=== PATIENT | female | born 1995 | race Caucasian/White ===

== ENCOUNTER 2017-11-14 20:09 | Inpatient (IN) | payer SELFPAY ==
[~2017-11-14] VITALS: Ht 167.6 cm; Wt 127.0 kg
[~2017-11-14 20:09] MED LIST: CLIN-80 PO; DCS100C PO; Ibuprofen PO; METR500T PO; MONISTAT7 VG; NITR-65 PO; PREN1TAB71 PO
--- OUTSIDE RECORDS SUMMARY | 2017-11-14 20:16 | XMS REPORT ---
Author IGNACIO Solorzano [facility] eClinicalWorks Address Unknown Phone Unavailable Care Team Providers Care Residential Supervisor Name Role Phone IGNACIO NIÑO CP Unavailable Allergies, Adverse Reactions, Alerts Substance Reaction Event Type N.K.D.A. Info Not Available Non Drug Allergy Problems Problem Type Condition ICD-9 Code Onset Dates Condition Status Assessment General counseling for prescription of oral contraceptives V25.01 Active Problem General counseling for prescription of oral contraceptives V25.01 Active Medications Medication Code System Code Instructions Start Date End Date Status Dosage Depo-Provera [facility] [address]-58 150 MG/ML Intramuscular 1 ml Procedures Procedure Coding System Code Date DEPO PROVERA (150 MG/ML) CPT-4 J1050 Apr 05, 2015 THER/PROPH/DIAG INJ, SC/IM CPT-4 33831 Apr 05, 2015 URINE TEST CPT-4 67627 Apr 05, 2015 Preventive Care Est Pt. Age 18-39 CPT-4 21828 Apr 05, 2015 Vital Signs Date/Time: Apr 05, 2015 Temperature 97.8 F Weight 243 lbs Height 66.5 in BMI 38.63 Index Blood Pressure Diastolic 68 mmHg Blood Pressure Systolic 122 mmHg Cardiac Monitoring Heart Rate 70 bpm BMIPercentile 98.39 % Wt Percentile 99.22 % Results Name Result Date Reference Range Unit Abnormality Flag TEST, URINE (IN HOUSE) Summary Purpose eClinicalWorks Submission
--- OUTSIDE RECORDS SUMMARY | 2017-11-14 20:16 | XMS REPORT ---
Author Author HECTOR PHILIPPE Organization eClinicalWorks Address Unknown Phone Unavailable Care Team Providers Care Dispute Coordinator Name Role Phone HECTOR PHILIPPE CP Unavailable Allergies No Known Allergies Problems Problem Type Condition Code Onset Dates Condition Status Assessment Encounter for Depo-Provera contraception Z30.42 Active Problem General counseling for prescription of oral contraceptives V25.01 Active Medications No Known Medications Procedures Procedure Coding System Code Date DEPO PROVERA (150 MG/ML) CPT-4 J1050 Jun 13, 2016 THER/PROPH/DIAG INJ, SC/IM CPT-4 48189 Jun 13, 2016 URINE TEST CPT-4 79543 Jun 13, 2016 Results No Known Results Summary Purpose eClinicalWorks Submission
--- OUTSIDE RECORDS SUMMARY | 2017-11-14 20:16 | XMS REPORT ---
Author Author DAYDAY Elena [facility] Address Unknown Care Team Providers Care Preparation Plant Repairer Name Role Phone DAYDAY Elena Unavailable PROBLEMS Type Condition ICD9-CM Code AFC84-SD Code Onset Dates Condition Status SNOMED Code Problem IUD (intrauterine device) in place Z97.5 Active 033689485 ALLERGIES Substance Reaction Event Type Date Status N.K.D.A. Unknown Non Drug Allergy Jul, Unknown SOCIAL HISTORY No smoking Hx information available PLAN OF CARE Activity Details Follow Up prn Reason:TE of 19 and DANDRE VITAL SIGNS Height 66.5 in 2016-08-04 Blood pressure systolic 127 mmHg 2016-08-04 Blood pressure diastolic 69 mmHg 2016-08-04 MEDICATIONS Medication Instructions Dosage Frequency Start Date End Date Duration Status Depo-Provera 150 MG/ML 1 ml Active RESULTS No Results PROCEDURES Procedure Date Ordered Related Diagnosis Body Site LTD ORAL EVALUATION - PROBLEM FOCUS Aug 04, 2016 INTRAORL-PERIAPICAL 1 FILM 55184 Aug 04, 2016 IMMUNIZATIONS No Known Immunizations
--- OUTSIDE RECORDS SUMMARY | 2017-11-14 20:16 | XMS REPORT ---
Author Author SHIVA CISSE Organization eClinicalWorks Address Unknown Phone Unavailable Care Team Providers Care Swing Type Lathe Operator Name Role Phone SHIVA CISSE CP Unavailable Allergies No Known Allergies Problems Problem Type Condition Code Onset Dates Condition Status Assessment test negative Z32.02 Active Problem General counseling for prescription of oral contraceptives V25.01 Active Medications No Known Medications Procedures Procedure Coding System Code Date URINE TEST CPT-4 33252 May 30, 2016 Results Name Result Date Reference Range Unit Abnormality Flag TEST, URINE (IN HOUSE) ----RESULTS neg [id number] ----Lot # [id number] ----Control + [id number] ----Exp date 11/07/1720160530 Summary Purpose eClinicalWorks Submission
--- OUTSIDE RECORDS SUMMARY | 2017-11-14 20:16 | XMS REPORT ---
Author Author IGNACIO NIÑO [facility] eClinicalWorks Address Unknown Phone Unavailable Care Team Providers Care Polisher Balance Screwhead Name Role Phone IGNACIO NIÑO Unavailable Allergies No Known Allergies Problems Problem Type Condition Code Onset Dates Condition Status Assessment Negative test Z32.02 Active Problem General counseling for prescription of oral contraceptives V25.01 Active Medications No Known Medications Procedures Procedure Coding System Code Date URINE TEST CPT-4 70695 Jul 23, 2015 Results No Known Results Summary Purpose eClinicalWorks Submission
--- OUTSIDE RECORDS SUMMARY | 2017-11-14 20:16 | XMS REPORT ---
Author Author SHIVA CISSE [facility] Address [address] [place] [address] Care Team Providers Care Rod Drawer Name Role Phone SHIVA CISSE Unavailable PROBLEMS Type Condition ICD9-CM Code [id number] Code Onset Dates Condition Status SNOMED Code Problem IUD (intrauterine device) in place Z97.5 Active 614090314 ALLERGIES No Known Allergies SOCIAL HISTORY Never Assessed PLAN OF CARE Activity Details Follow Up prn Reason: VITAL SIGNS Height 66.5 in 2016-10-09 Weight 265.2 lbs 2016-10-09 Temperature 97.9 degrees Fahrenheit 2016-10-09 Heart Rate 76 bpm 2016-10-09 Respiratory Rate 18 2016-10-09 BMI 42.16 kg/m2 2016-10-09 Blood pressure systolic 110 mmHg 2016-10-09 Blood pressure diastolic 60 mmHg 2016-10-09 MEDICATIONS Medication Instructions Dosage Frequency Start Date End Date Duration Status Mirena (52 MG) 20 MCG/24HR as directed Oct, Active RESULTS Name Result Date Reference Range TEST, URINE (IN HOUSE) 2016-10-09 RESULTS negative Lot # [id number] Control positive Exp date 05/09/18 PROCEDURES Procedure Date Ordered Result Body Site URINE TEST October 09, 2016 IMMUNIZATIONS No Known Immunizations MEDICAL (GENERAL) HISTORY Type Description Date Medical History attention deficit hyperactivity disorder Medical History depression Surgical History tonsillectomy Surgical History knee surgery right knee 04/2016 Hospitalization History childbirth
--- OUTSIDE RECORDS SUMMARY | 2017-11-14 20:16 | XMS REPORT ---
Author Author HECTOR BOB Organization [facility] Address [address] [place] [address] Care Team Providers Care Production Laborer Name Role Phone HECTOR BOB Unavailable PROBLEMS Type Condition ICD9-CM Code LWR81-YV Code Onset Dates Condition Status SNOMED Code Problem IUD (intrauterine device) in place Z97.5 Active 034157215 ALLERGIES Substance Reaction Event Type Date Status N.K.D.A. Unknown Non Drug Allergy Aug, Unknown SOCIAL HISTORY No smoking Hx information available PLAN OF CARE Activity Details Follow Up prn Reason:if not improving VITAL SIGNS Height 66.5 in 2016-08-20 Weight 261.8 lbs 2016-08-20 Temperature 96.9 degrees Fahrenheit 2016-08-20 Heart Rate 88 bpm 2016-08-20 Respiratory Rate 16 2016-08-20 BMI 41.62 kg/m2 2016-08-20 Blood pressure systolic 108 mmHg 2016-08-20 Blood pressure diastolic 58 mmHg 2016-08-20 MEDICATIONS Medication Instructions Dosage Frequency Start Date End Date Duration Status Azelastine HCl 0.05 % Ophthalmic Twice a day 1 drop into affected eye 12h 10 Aug, 2016 07 days Active Erythromycin 5 MG/GM Ophthalmic Four times a day 1cm ribbon 6h Aug, Aug, 10 days Active Cromolyn Sodium 4 % Ophthalmic Four times a day as needed 1 drop into affected eye Aug, 14 days Active Depo-Provera 150 MG/ML 1 ml Active RESULTS No Results PROCEDURES Procedure Date Ordered Related Diagnosis Body Site Office Visit, Est Pt., Level 3 Aug 20, 2016 IMMUNIZATIONS No Known Immunizations
--- OUTSIDE RECORDS SUMMARY | 2017-11-14 20:16 | XMS REPORT ---
Author IGNACIO Solorzano [facility] eClinicalWorks Address Unknown Phone Unavailable Care Team Providers Care Material Handling Supervisor Name Role Phone IGNACIO NIÑO Unavailable Allergies No Known Allergies Problems Problem Type Condition Code Onset Dates Condition Status Assessment Encounter for Depo-Provera contraception Z30.42 Active Problem General counseling for prescription of oral contraceptives V25.01 Active Medications No Known Medications Procedures Procedure Coding System Code Date DEPO PROVERA (150 MG/ML) CPT-4 J1050 Mar 25, 2016 THER/PROPH/DIAG INJ, SC/IM CPT-4 15823 Mar 25, 2016 URINE TEST CPT-4 22566 Mar 25, 2016 Results No Known Results Summary Purpose eClinicalWorks Submission
--- OUTSIDE RECORDS SUMMARY | 2017-11-14 20:16 | XMS REPORT ---
Author Author HECTOR BOB [facility] Address [address] [place] [address] Care Team Providers Care Instrumentation Supervisor Name Role Phone HECTOR BOB Unavailable PROBLEMS Type Condition ICD9-CM Code [id number] Code Onset Dates Condition Status SNOMED Code Problem IUD (intrauterine device) in place Z97.5 Active [id number] ALLERGIES No Information SOCIAL HISTORY Never Assessed PLAN OF CARE VITAL SIGNS MEDICATIONS No Known Medications RESULTS Name Result Date Reference Range TEST, URINE (IN HOUSE) 2016-12-22 RESULTS negative Lot # [id number] Control + Exp date 11/2017 PROCEDURES Procedure Date Ordered Result Body Site URINE TEST December 22, 2016 IMMUNIZATIONS No Known Immunizations MEDICAL (GENERAL) HISTORY Type Description Date Medical History attention deficit hyperactivity disorder Medical History depression Surgical History tonsillectomy Surgical History knee surgery right knee 04/2016 Hospitalization History childbirth
--- OUTSIDE RECORDS SUMMARY | 2017-11-14 20:16 | XMS REPORT ---
Author IGNACIO Solorzano [facility] eClinicalWorks Address Unknown Phone Unavailable Care Team Providers Care Clay Plant Treater Name Role Phone IGNACIO NIÑO Unavailable Allergies No Known Allergies Problems Problem Type Condition Code Onset Dates Condition Status Assessment Encounter for Depo-Provera contraception Z30.42 Active Problem General counseling for prescription of oral contraceptives V25.01 Active Medications No Known Medications Procedures Procedure Coding System Code Date DEPO PROVERA (150 MG/ML) CPT-4 J1050 Jun 21, 2015 THER/PROPH/DIAG INJ, SC/IM CPT-4 32869 Jun 21, 2015 URINE TEST CPT-4 16988 Jun 21, 2015 Results Name Result Date Reference Range Unit Abnormality Flag TEST, URINE (IN HOUSE) Summary Purpose eClinicalWorks Submission
--- OUTSIDE RECORDS SUMMARY | 2017-11-14 20:16 | XMS REPORT | Continuity of Care Document ---
Author Author [facility] Address Unknown Phone Unavailable Allergies Active Description Code Type Severity Reaction Onset Reported/Identified Relationship to Patient Clinical Status Yes No Known Drug Allergies [id number] Drug Allergy Unknown N/A 2013 Medications There is no data. Problems Date Dx Coded Attending Type Code Diagnosis Diagnosed By 04/29/2013 ROLAN BASHIR MD Ot 648.91 04/29/2013 ROLAN BASHIR MD Ot V02.51 04/29/2013 ROLAN BASHIR MD Ot V06.1 04/29/2013 ROLAN BASHIR MD Ot V27.0 07/04/2013 GOLDSTEIN YUSUF Jeff V25.01 GENERAL COUNSELING ON PRESCRIPTION OF ORAL CONTRACEPTIVES 10/29/2013 ENOC PHELAN HARINDER Jeff Ot 599.0 10/29/2013 ENOC PHELAN HARINDER K Ot 623.8 10/29/2013 ENOC PHELAN HARINDER Jeff Ot 640.03 10/29/2013 ENOC PHELAN HARINDER Aguilar Ot 646.63 12/09/2013 YOLANDE NORMAN APRN Ot 648.93 12/09/2013 YOLANDE NORMAN APRN Ot 789.00 12/10/2013 DENA MCCONNELL MD Ot 112.1 12/10/2013 DENA MCCONNELL MD Ot 647.81 12/10/2013 DENA MCCONNELL MD Ot 789.09 02/06/2014 ROLAN BASHIR MD Ot 623.5 02/06/2014 ROLAN BASHIR MD Ot 654.73 05/07/2014 ROLAN BASHIR MD Ot 285.1 05/07/2014 ROLAN BASHIR MD Ot 285.9 05/07/2014 ROLAN BASHIR MD Ot 648.21 05/07/2014 ROLAN BASHIR MD Ot 648.22 05/07/2014 ROLAN BASHIR MD Ot V27.0 08/17/2014 ROLAN BASHIR MD Ot V28.89 08/17/2014 ROLAN BASHIR MD Ot V28.81 04/05/2015 Ot 648.93 04/05/2015 Ot 789.00 04/05/2015 ROLAN BASHIR MD Ot 649.63 04/05/2015 ROLAN BASHIR MD Ot V28.89 04/05/2015 ROLAN BASHIR MD Ot V28.81 04/05/2015 ROLAN BASHIR MD Ot V28.81 Procedures Code [place] [address] URINE TEST (IN- HOUSE) 07/04/2013 09839 GC/CHLAM URINE (STATE) 07/04/2013 Results There is no data. Encounters ACCT No. Visit Date/Time Discharge Status Pt. Type Provider Facility Loc./Unit Complaint [id number] 07/04/2013 11:00:00 07/04/2013 23:59:59 CLS Outpatient ANGELITA YUSUF PHELAN [id number] 05/06/2014 12:07:00 05/07/2014 22:55:00 DIS Inpatient ROLAN BASHIR MD [facility] LD [id number] 02/28/2014 09:36:00 02/28/2014 23:59:59 CLS Outpatient ROLAN BASHIR MD [facility] RAD [id number] 02/06/2014 22:05:00 02/06/2014 23:50:00 DIS Outpatient ROLAN BASHIR MD [facility] WSo [id number] 01/03/2014 14:20:00 01/03/2014 23:59:59 CLS Outpatient ROLAN BASHIR MD [facility] RAD [id number] 12/10/2013 15:15:00 12/10/2013 16:23:00 DIS Emergency DENA MCCONNELL MD [facility] ER [id number] 12/09/2013 18:12:00 12/09/2013 20:54:00 DIS Emergency YOLANDE NORMAN APRN [facility] ER [id number] 10/29/2013 18:05:00 10/29/2013 20:59:00 DIS Emergency ENOC PHELAN HARINDER Aguilar [facility] ER [id number] 09/30/2013 09:51:00 09/30/2013 23:59:59 CLS Outpatient ROLAN BASHIR MD [facility] RAD [id number] 2013 18:52:00 04/29/2013 16:15:00 DIS Inpatient ROLAN BASHIR MD [facility] WS [id number] 12/13/2012 09:49:00 12/13/2012 23:59:59 CLS Outpatient ROLAN BASHIR MD [facility] RAD [id number] 11/14/2017 20:11:00 ACT Emergency ENOC PHELAN HARINDER Aguilar [facility] ER SWELLING ON L SIDE OF FACE [id number] 09/20/2012 14:09:00 Document Registration
--- OUTSIDE RECORDS SUMMARY | 2017-11-14 20:16 | XMS REPORT ---
Author Author HECTOR BOB [facility] Address [address] [place] [address] Care Team Providers Care Solution Manager Name Role Phone HECTOR BOB Unavailable PROBLEMS Type Condition ICD9-CM Code CRE42-XI Code Onset Dates Condition Status SNOMED Code Problem IUD (intrauterine device) in place Z97.5 Active [id number] ALLERGIES No Known Allergies SOCIAL HISTORY No smoking Hx information available PLAN OF CARE VITAL SIGNS MEDICATIONS No Known Medications RESULTS No Results PROCEDURES No Known procedures IMMUNIZATIONS No Known Immunizations
[2017-11-14] MEDS ORDERED: NS IV 1000 ML 1,000 ML IV ONE (20:57)
[2017-11-14] MEDS ORDERED: cefTRIAXone INJECTION 1,000 MG in NS (IVPB) 100 ML IV ONE (21:00)
--- NOTE | 2017-11-14 21:32 | ED EENT ---
History of Present Illness General Chief Complaint: Facial Problems Stated Complaint: SWELLING ON L SIDE OF FACE Nursing Triage Note: Patient advises she was seen today at [place] [facility] secondary to left sided facial swelling. She states she has had a broken tooth x 3 years that she has not had repaired. She states she was given amoxicillin TID for 10 days. She advises she had a fever earlier and was told to be evaluated if a fever was present. Source: patient Exam Limitations: no limitations History of Present Illness Date Seen by Provider: Nov 14, 2017 Time Seen by Provider: 21:31 Initial Comments 22-year-old female patient presents to the emergency department with complaints of left sided facial swelling and pain. Patient reports having a broken tooth for approximately 3 years. Patient was seen earlier today by [place] emergency department and given a prescription for amoxicillin 3 times a day. Patient reports increased swelling, pain, and fevers of 101.5. Timing/Duration: abrupt Location: facial, dental Prearrival Treatment: over the counter meds Modifying Factors: Worse With Other (worse with palpation and chewing) Allergies and Home Medications Allergies Coded Allergies: No Known Drug Allergies (Unverified , 04/27/13) Home Medications Docusate Sodium 100 Mg Capsule, 100 MG PO DAILY, (Reported) Vit/Fe Fumarate/Fa 1 Each Tablet, 1 EACH PO DAILY, (Reported) [Ibuprofen] 600 MG TAB, 600 MG PO Q6H Prescribed by: FAUSTO MULLINS on 05/07/14 2130 Patient Home Medication List Home Medication List Reviewed: Yes Review of Systems Constitutional: chills, fever, malaise Eyes: No Symptoms Reported Ears: No Symptoms Reported Nose: no symptoms reported Mouth: see HPI Throat: no symptoms reported Respiratory: no symptoms reported Cardiovascular: no symptoms reported Gastrointestinal: no symptoms reported Musculoskeletal: no symptoms reported Skin: no symptoms reported Neurological: No Symptoms Reported All Other Systems Reviewed Negative Unless Noted: Yes (Negative excepted noted.) Past Dbijijc-Smztnl-Rjvvtp Hx Patient Social History Alcohol Use: Denies Use Recreational Drug Use: No 2nd Hand Smoke Exposure: No Recent Foreign Travel: No Contact w/Someone Who Travel: No Recent Infectious Disease Expo: No Recent Hopitalizations: No Physical Abuse: No Sexual Abuse: No Immunizations Up To Date Tetanus Booster (TDap): Less than 5yrs Seasonal Allergies Seasonal Allergies: No Past Medical History Surgeries: Yes Section, Tonsillectomy Respiratory: No Cardiac: No Neurological: No Reproductive Disorders: No Gastrointestinal: No Musculoskeletal: No Endocrine: No Cancer: No Psychosocial: No Nursing Suicide Risk Score: 0 Integumentary: No Blood Disorders: No Adverse Reaction/Blood Tranf: No Family Medical History Reviewed Nursing Family Hx Alcoholism 19 MOTHER (Cousin) Arthritis 19 MOTHER Asthma 19 MOTHER Cataracts 19 MOTHER (MGM) Congenital disease 19 MOTHER (Cousin has CP) Deafness or hearing loss 19 MOTHER (Cousin) Diabetes mellitus 19 MOTHER (Mother, uncle, several family members) Gastroenteritis 19 MOTHER (IBS, colitis) Hypercholesterolemia 19 MOTHER Hypertension 19 MOTHER (MGM, aunts and uncles) Myocardial infarction 19 MOTHER (Uncle, aunt) Prostate cancer 19 MOTHER (Grandpa) Psychosocial problem 19 MOTHER (Depression, anxiety) Respiratory disorder 19 MOTHER (asthma) Seizure disorder 19 MOTHER (aunt) Severe allergy 19 MOTHER Thyroid disease 19 MOTHER (Thyroid CA) No Family History of: AIDS Abdominal aortic aneurysm Howell's disease Alzheimer's disease Aphasia Cancer of mouth Cardiovascular disease Colon cancer Completed stroke Congenital heart disease Coronary thrombosis Cystic fibrosis Dementia Drug abuse Dysphasia Fibrocystic disease of breast Glaucoma Headache disorder Infertility Kidney disease Neoplasm Not obtainable due to adoption Osteoporosis Parkinson's disease Tuberculosis Visual disorder Physical Exam Vital Signs Vital Signs - First Documented 11/14/17 20:33 Temp 99.1 Pulse 77 Resp 14 B/P (MAP) 138/68 (91) Pulse Ox 98 O2 Delivery Room Air General Appearance: WD/WN, no apparent distress Eyes: bilateral eye normal inspection, bilateral eye PERRL, bilateral eye EOMI Ears: bilateral ear auricle normal, bilateral ear canal normal, bilateral ear TM normal Nose: normal inspection Mouth/Throat: pharynx normal, dental tenderness, other (left mandibular swelling and tenderness. multiple dental caries noted. ) Neck: non-tender, supple, normal inspection Cardiovascular: normal peripheral pulses, regular rate, rhythm, no murmur Respiratory: lungs clear, normal breath sounds, no respiratory distress, no accessory muscle use Gastrointestinal: normal bowel sounds, non tender, soft, no organomegaly Neurologic/Psychiatric: alert, normal mood/affect, oriented x 3 Skin: normal color, warm/dry Progress/Results/Core Measures Lab Results Laboratory Tests Test 11/14/17 22:00 11/14/17 22:06 11/14/17 22:18 Range/Units Urine Test NEGATIVE NEGATIVE White Blood Count 11.3 H 4.3-11.0 10^3/uL Red Blood Count 4.31 L 4.35-5.85 10^6/uL Hemoglobin 13.7 11.5-16.0 G/DL Hematocrit 42 35-52 % Mean Corpuscular Volume 97 80-99 FL Mean Corpuscular Hemoglobin 32 25-34 PG Mean Corpuscular Hemoglobin Concent 33 32-36 G/DL Red Cell Distribution Width 13.3 10.0-14.5 % Platelet Count 406 H 130-400 10^3/uL Mean Platelet Volume 9.4 7.4-10.4 FL Neutrophils (%) (Auto) 62 42-75 % Lymphocytes (%) (Auto) 28 12-44 % Monocytes (%) (Auto) 8 0-12 % Eosinophils (%) (Auto) 2 0-10 % Basophils (%) (Auto) 0 0-10 % Neutrophils # (Auto) 7.0 1.8-7.8 X 10^3 Lymphocytes # (Auto) 3.2 1.0-4.0 X 10^3 Monocytes # (Auto) 0.9 0.0-1.0 X 10^3 Eosinophils # (Auto) 0.3 0.0-0.3 10^3/uL Basophils # (Auto) 0.0 0.0-0.1 10^3/uL Sodium Level 137 135-145 MMOL/L Potassium Level 4.2 3.6-5.0 MMOL/L Chloride Level 105 98-107 MMOL/L Carbon Dioxide Level 25 21-32 MMOL/L Anion Gap 7 5-14 MMOL/L Blood Urea Nitrogen 13 7-18 MG/DL Creatinine 0.67 0.60-1.30 MG/DL Estimat Glomerular Filtration Rate > 60 BUN/Creatinine Ratio 19 Glucose Level 98 70-105 MG/DL Calcium Level 9.5 8.5-10.1 MG/DL Total Bilirubin 0.3 0.1-1.0 MG/DL Aspartate Amino Transf (AST/SGOT) 22 5-34 U/L Alanine Aminotransferase (ALT/SGPT) 37 0-55 U/L Alkaline Phosphatase 85 40-136 U/L Total Protein 9.1 H 6.4-8.2 GM/DL Albumin 4.5 3.2-4.5 GM/DL Urine Color YELLOW Urine Clarity VERY CLOUDY H Urine pH 8 5-9 Urine Specific [place] 1.015 L 1.016-1.022 Urine Protein NEGATIVE NEGATIVE Urine Glucose (UA) NEGATIVE NEGATIVE Urine Ketones NEGATIVE NEGATIVE Urine Nitrite NEGATIVE NEGATIVE Urine Bilirubin NEGATIVE NEGATIVE Urine Urobilinogen 1 NORMAL MG/DL Urine Leukocyte Esterase 1+ H NEGATIVE Urine RBC (Auto) NEGATIVE NEGATIVE Urine RBC RARE /HPF Urine WBC RARE /HPF Urine Squamous Epithelial Cells 2-5 /HPF Urine Renal Epithelial Cells NONE /HPF Urine Crystals PRESENT H /LPF Urine Amorphous Sediment LARGE CARON PHOSPHATE H /LPF Urine Bacteria TRACE /HPF Urine Casts NONE /LPF Urine Mucus NEGATIVE /LPF Urine Culture Indicated NO Lactic Acid Level 0.92 0.50-2.00 MMOL/L My Orders Orders - VINCENT MORGAN Cbc With Automated Diff (11/14/17 20:57) Comprehensive Metabolic Panel (11/14/17 20:57) Lactic Acid Analyzer (11/14/17 20:57) Blood Culture (11/14/17 20:57) Sputum Culture (11/14/17 20:57) Ua Culture If Indicated (11/14/17 20:57) Saline Lock/Iv-Start (11/14/17 20:57) Vital Signs Adult Sepsis Patie Q1H (11/14/17 20:57) Remove Rings In Anticipation O (11/14/17 20:57) Ns Iv 1000 Ml (Sodium Chloride 0.9%) (11/14/17 20:57) Ceftriaxone Injection (Rocephin Injectio (11/14/17 21:00) Ns (Ivpb) (Sodium Chloride 0.9% Ivpb Bag (11/14/17 21:46) Acetaminophen Tablet (Tylenol Tablet) (11/14/17 22:29) Ketorolac Injection (Toradol Injection) (11/14/17 22:29) Ct Maxillofacial W (11/14/17 22:29) Hcg,Qualitative Urine (11/14/17 22:48) Medications Given in ED Current Medications Medications Dose Ordered Sig/Emmanuel Route Start Time Stop Time Status Last Admin Dose Admin Ceftriaxone Sodium 1000 mg/ Sodium Chloride 100 ml @ 200 mls/hr ONCE ONCE IV 11/14/17 21:00 4 21:29 DC 11/14/17 21:57 200 MLS/HR Sodium Chloride 50 ml @ ud STK-MED ONCE .ROUTE 11/14/17 21:46 11/14/17 21:50 DC 11/14/17 21:56 50 MLS/HR Sodium Chloride 1,000 ml @ 0 mls/hr Q0M ONCE IV 11/14/17 20:57 11/14/17 20:59 DC 11/14/17 21:56 0 MLS/HR Vital Signs/I&O 11/14/17 20:33 Temp 99.1 Pulse 77 Resp 14 B/P (MAP) 138/68 (91) Pulse Ox 98 O2 Delivery Room Air Blood Pressure Mean: 91 Diagonstic Imaging: CT Plain Films/CT/US/NM/MRI: facial bones Comments Left second molar dental caries with minimal erosions of the adjacent bone suggesting early osteomyelitis. There is mild edema noted within the adjacent left soft tissues. No evidence of abscess. Findings per stat rad report. Reviewed: Reviewed [facility] Study Departure Communication (Admissions) Time/Spoke to Admitting Phy: 00:05 Dr. Ernst graciously accepts patient to her internal medicine service for IV antibiotics and HEENT consult. Dr. Marie to be consulted in the AM. all laboratory findings, diagnostic study findings, and plan for admission discussed with the patient. patient verbalizes understanding and agrees with the treatment plan. dr. peng notified of plan for admit. Impression Primary Impression: Osteomyelitis of mandible Additional Impression: Dental caries Disposition: ADMITTED INPATIENT Condition: Stable Admissions Decision to Admit Reason: Admit from ER (General) Decision to Admit/Date: Nov 15, 2017 Time/Decision to Admit Time: 00:05 Departure-Patient Inst. Referrals: VALARIE DORMAN MD (PCP) Primary Care Physician ARIADNA XIAO APRN (Family) Primary Care Physician VINCENT MORGAN Nov 14, 2017 21:31
[2017-11-14] MEDS ORDERED: NS (IVPB) 50 ML ONE (21:46)
[2017-11-14 22:20] LABS: BASOPHILS % (AUTO) 0 % (0-10); EOSINOPHILS # (AUTO) 0.3 10^3/uL (0.0-0.3); EOSINOPHILS % (AUTO) 2 % (0-10); HEMATOCRIT 42 % (35-52); HEMOGLOBIN 13.7 G/DL (11.5-16.0); LYMPHOCYTES # (AUTO) 3.2 X 10^3 (1.0-4.0); LYMPHOCYTES % (AUTO) 28 % (12-44); MEAN CORPUSCULAR HEMOGLOBIN 32 PG (25-34); MEAN CORPUSCULAR HGB CONC 33 G/DL (32-36); MEAN CORPUSCULAR VOLUME 97 FL (80-99); MEAN PLATELET VOLUME 9.4 FL (7.4-10.4); MONOCYTES # (AUTO) 0.9 X 10^3 (0.0-1.0); MONOCYTES % (AUTO) 8 % (0-12); NEUTROPHILS % (AUTO) 62 % (42-75); PLATELET COUNT 406 10^3/uL (130-400); RED BLOOD COUNT 4.31 10^6/uL (4.35-5.85); RED CELL DISTRIBUTION WIDTH 13.3 % (10.0-14.5); WHITE BLOOD COUNT 11.3 10^3/uL (4.3-11.0)
[2017-11-14] MEDS ORDERED: ACETAMINOPHEN 500 MG TAB (TYLENOL) PO STA (22:29)
[2017-11-14] MEDS ORDERED: KETOROLAC 30 MG/ML VIAL IVP STA (22:29)
[2017-11-14 22:31] LABS: BILIRUBIN,URINE NEGATIVE (NEGATIVE); CLARITY,URINE VERY CLOUDY; COLOR,URINE YELLOW; GLUCOSE, URINE (UA) NEGATIVE (NEGATIVE); KETONES,URINE NEGATIVE (NEGATIVE); LEUKOCYTE ESTERASE ,URINE 1+ (NEGATIVE); NITRITE,URINE NEGATIVE (NEGATIVE); PH,URINE 8 (5-9); PROTEIN,URINE NEGATIVE (NEGATIVE); UROBILINOGEN,URINE 1 MG/DL (NORMAL)
[2017-11-14 22:41] LABS: ALANINE AMINOTRANSFERASE 37 U/L (0-55); ALBUMIN 4.5 GM/DL (3.2-4.5); ALKALINE PHOSPHATASE 85 U/L (40-136); BILIRUBIN,TOTAL 0.3 MG/DL (0.1-1.0); BUN/CREATININE RATIO 19; CALCIUM 9.5 MG/DL (8.5-10.1); CARBON DIOXIDE 25 MMOL/L (21-32); CHLORIDE 105 MMOL/L (98-107); CREATININE SERUM 0.67 MG/DL (0.60-1.30); GFR ESTIMATED > 60; GLUCOSE 98 MG/DL (70-105); POTASSIUM 4.2 MMOL/L (3.6-5.0); SODIUM 137 MMOL/L (135-145); TOTAL PROTEIN 9.1 GM/DL (6.4-8.2)
[2017-11-14 22:46] LABS: BACTERIA,URINE TRACE /HPF; RBC,URINE RARE /HPF; WBC,URINE RARE /HPF
[2017-11-14 22:47] LABS: AMORPHOUS SEDIMENT,UR LARGE AMOR PHOSPHATE /LPF
--- OUTSIDE RECORDS SUMMARY | 2017-11-15 02:24 | XMS REPORT | Continuity of Care Document ---
Author Author [facility] Address Unknown Phone Unavailable Allergies Active Description Code Type Severity Reaction Onset Reported/Identified Relationship to Patient Clinical Status Yes No Known Drug Allergies [id number] Drug Allergy Unknown N/A 2013 Medications There is no data. 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 04/29/2013 ROLAN BASHIR MD Ot V06.1 [id number], COMBINED [ 04/29/2013 ROLAN BASHIR MD Ot V27.0 DELIVER-SINGLE LIVEBORN 07/04/2013 YUSUF GOLDSTEIN DO V25.01 GENERAL COUNSELING ON PRESCRIPTION OF ORAL CONTRACEPTIVES 10/29/2013 HARINDER STUBBS DO Ot 599.0 URIN TRACT INFECTION NOS 10/29/2013 HARINDER STUBBS DO Ot 623.8 NONINFLAM DIS VAGINA NEC 10/29/2013 HARINDER STUBBS DO Ot 640.03 THREATEN ABORT-ANTEPART 10/29/2013 HARINDER STUBBS DO Ot 646.63 INFECTION-ANTEPARTUM 12/09/2013 YOLANDE NORMAN APRN Ot 648.93 OTH CURR COND-ANTEPARTUM 12/09/2013 YOLANDE NORMAN APRN Ot 789.00 ABDOMINAL PAIN, UNSPECIFIED SITE 12/10/2013 DENA MCCONNELL MD Ot 112.1 CANDIDAL VULVOVAGINITIS 12/10/2013 DENA MCCONNELL MD Ot 647.81 INFECT DIS NEC-DELIVERED 12/10/2013 DENA MCCONNELL MD Ot 789.09 ABDOMINAL PAIN, OTHER SPECIFIED SITE 02/06/2014 ROLAN BASHIR MD Ot 623.5 NONINFECT VAG LEUKORRHEA 02/06/2014 ROLAN BASHIR MD Ot 654.73 ABNORM VAGINA-ANTEPARTUM 05/07/2014 ROLAN BASHIR MD Ot 285.1 AC POSTHEMORRHAG ANEMIA 05/07/2014 ROLAN BASHIR MD Ot 285.9 ANEMIA NOS 05/07/2014 ROLAN BASHIR MD Ot 648.21 ANEMIA-DELIVERED 05/07/2014 ROLAN BASHIR MD Ot 648.22 ANEMIA-DELIVERED W P/P 05/07/2014 ROLAN BASHIR MD Ot V27.0 DELIVER-SINGLE LIVEBORN 08/17/2014 ROLAN BASHIR MD, Ot V28.89 08/17/2014 ROLAN BASHIR MD, Ot V28.81 04/05/2015 Ot 648.93 04/05/2015 Ot 789.00 04/05/2015 ROLAN BASHIR MD Ot 649.63 04/05/2015 ROLAN BASHIR MD, Ot V28.89 04/05/2015 ROLAN BASHIR MD, Ot V28.81 04/05/2015 ROLAN BASHIR MD, Ot V28.81 11/14/2017 Ot 648.93 OTH CURR COND-ANTEPARTUM 11/14/2017 Ot 789.00 ABDOMINAL PAIN, UNSPECIFIED SITE 11/14/2017 ROLAN BASHIR MD Ot 649.63 UTERINE SIZE DATE DISCREPANCY, ANTEPARTU 11/14/2017 ROLAN BASHIR MD, Ot V28.89 OTHER SPECIFIED SCREENING 11/14/2017 ROLAN BASHIR MD, Ot V28.81 ENCOUNTER FOR ANATOMIC SURVEY 11/14/2017 ROLAN BASHIR MD, Ot V28.81 ENCOUNTER FOR ANATOMIC SURVEY Procedures Code Description Performed By Performed On 96.49 OTHER INSTILLATION 2013 73.6 EPISIOTOMY 04/28/2013 32804 URINE TEST (IN- HOUSE) 07/04/2013 20088 GC/CHLAM URINE (STATE) 07/04/2013 73.6 EPISIOTOMY 05/06/2014 Results Test Result Range Urine beta human chorionic gonadotropin (hCG) measurement - 11/14/17 22:00 Urine beta human chorionic gonadotropin (hCG) measurement NEGATIVE NEGATIVE Complete blood count (CBC) with automated white blood cell (WBC) differential - 11/14/17 22:06 Blood leukocytes automated count (number/volume) 11.3 10*3/uL 4.3-11.0 Blood erythrocytes automated count (number/volume) 4.31 10*6/uL 4.35-5.85 Venous blood hemoglobin measurement (mass/volume) 13.7 g/dL 11.5-16.0 Blood hematocrit (volume fraction) 42 % 35-52 Automated erythrocyte mean corpuscular volume 97 [foz_us] 80-99 Automated erythrocyte mean corpuscular hemoglobin (mass per erythrocyte) 32 pg 25-34 Automated erythrocyte mean corpuscular hemoglobin concentration measurement ( mass/volume) 33 g/dL 32-36 Automated erythrocyte distribution width ratio 13.3 % 10.0-14.5 Automated blood platelet count (count/volume) 406 10*3/uL 130-400 Automated blood platelet mean volume measurement 9.4 [foz_us] 7.4-10.4 Automated blood neutrophils/100 leukocytes 62 % 42-75 Automated blood lymphocytes/100 leukocytes 28 % 12-44 Blood monocytes/100 leukocytes 8 % 0-12 Automated blood eosinophils/100 leukocytes 2 % 0-10 Automated blood basophils/100 leukocytes 0 % 0-10 Blood neutrophils automated count (number/volume) 7.0 10*3 1.8-7.8 Blood lymphocytes automated count (number/volume) 3.2 10*3 1.0-4.0 Blood monocytes automated count (number/volume) 0.9 10*3 0.0-1.0 Automated eosinophil count 0.3 10*3/uL 0.0-0.3 Automated blood basophil count (count/volume) 0.0 10*3/uL 0.0-0.1 Comprehensive metabolic panel - 11/14/17 22:06 Serum or plasma sodium measurement (moles/volume) 137 mmol/L 135-145 Serum or plasma potassium measurement (moles/volume) 4.2 mmol/L 3.6-5.0 Serum or plasma chloride measurement (moles/volume) 105 mmol/L 98-107 Carbon dioxide 25 mmol/L 21-32 Serum or plasma anion gap determination (moles/volume) 7 mmol/L 5-14 Serum or plasma urea nitrogen measurement (mass/volume) 13 mg/dL 7-18 Serum or plasma creatinine measurement (mass/volume) 0.67 mg/dL 0.60-1.30 Serum or plasma urea nitrogen/creatinine mass ratio 19 NRG Serum or plasma creatinine measurement with calculation of estimated glomerular filtration rate > NRG Serum or plasma glucose measurement (mass/volume) 98 mg/dL 70-105 Serum or plasma calcium measurement (mass/volume) 9.5 mg/dL 8.5-10.1 Serum or plasma total bilirubin measurement (mass/volume) 0.3 mg/dL 0.1-1.0 Serum or plasma alkaline phosphatase measurement (enzymatic activity/volume) 85 U/L 40-136 Serum or plasma aspartate aminotransferase measurement (enzymatic activity/ volume) 22 U/L 5-34 Serum or plasma alanine aminotransferase measurement (enzymatic activity/volume ) 37 U/L 0-55 Serum or plasma protein measurement (mass/volume) 9.1 g/dL 6.4-8.2 Serum or plasma albumin measurement (mass/volume) 4.5 g/dL 3.2-4.5 Blood lactic acid measurement (moles/volume) - 11/14/17 22:18 Blood lactic acid measurement (moles/volume) 0.92 mmol/L 0.50-2.00 Complete urinalysis with reflex to culture - 11/14/17 22:18 Urine color determination YELLOW NRG Urine clarity determination VERY CLOUDY NRG Urine pH measurement by test strip 8 5-9 Specific gravity of urine by test strip 1.015 1.016- 1.022 Urine protein assay by test strip, semi-quantitative NEGATIVE NEGATIVE Urine glucose detection by automated test strip NEGATIVE NEGATIVE Erythrocytes detection in urine sediment by light microscopy NEGATIVE NEGATIVE Urine ketones detection by automated test strip NEGATIVE NEGATIVE Urine nitrite detection by test strip NEGATIVE NEGATIVE Urine total bilirubin detection by test strip NEGATIVE NEGATIVE Urine urobilinogen measurement by automated test strip (mass/volume) 1 mg/dL NORMAL Urine leukocyte esterase detection by dipstick 1+ NEGATIVE Automated urine sediment erythrocyte count by microscopy (number/high power field) RARE NRG Automated urine sediment leukocyte count by microscopy (number/high power field ) RARE NRG Bacteria detection in urine sediment by light microscopy TRACE NRG Squamous epithelial cells detection in urine sediment by light microscopy 2-5 NRG Crystals detection in urine sediment by light microscopy PRESENT NRG Casts detection in urine sediment by light microscopy NONE NRG Mucus detection in urine sediment by light microscopy NEGATIVE NRG Complete urinalysis with reflex to culture NO NRG Amorphous sediment detection in urine sediment by light microscopy LARGE CARON PHOSPHATE NRG Renal epithelial cells detection in urine sediment by light microscopy NONE NRG Encounters ACCT No. Visit Date/Time Discharge Status Pt. Type Provider Facility Loc./Unit Complaint [id number] 07/04/2013 11:00:00 07/04/2013 23:59:59 CLS Outpatient YUSUF GOLDSTEIN DO [id number] 05/06/2014 12:07:00 05/07/2014 22:55:00 DIS Inpatient ROLAN BASHIR MD [facility] LDRP PRESSURE/LABOR [id number] 02/28/2014 09:36:00 02/28/2014 23:59:59 CLS Outpatient ROLAN BASHIR MD [facility] RAD SURVEY [id number] 02/06/2014 22:05:00 02/06/2014 23:50:00 DIS Outpatient ROLAN BASHIR MD [facility] WSo LEAKING FLUID [id number] 01/03/2014 14:20:00 01/03/2014 23:59:59 CLS Outpatient ROLAN BASHIR MD [facility] RAD SURVEY [id number] 12/10/2013 15:15:00 12/10/2013 16:23:00 DIS Emergency DENA MCCONNELL MD [facility] ER ADB PAIN; 17 WKS PREG [id number] 12/09/2013 18:12:00 12/09/2013 20:54:00 DIS Emergency YOLANDE NORMAN SALES OPERATIONS MANAGER [facility] ER 16 WKS; ABD PAIN [id number] 10/29/2013 18:05:00 10/29/2013 20:59:00 DIS Emergency ENOC MONAEA K [facility] ER 11 WKS; BLEEDING [id number] 09/30/2013 09:51:00 09/30/2013 23:59:59 CLS Outpatient ROLAN BASHIR MD [facility] RAD DATING [id number] 2013 18:52:00 04/29/2013 16:15:00 DIS Inpatient ROLAN BASHIR MD [facility] WS INDUCTION [id number] 12/13/2012 09:49:00 12/13/2012 23:59:59 CLS Outpatient MCKAY GOMES, ROLAN Khanna [facility] RAD FUNDAL HEIGHT DISCREPANCY [id number] 11/15/2017 00:40:00 ACT Inpatient ISIDORO GOMES, TOMY Galvin [facility] 4TH OSTEOMYELITIS L MANDIBLE, DENTAL CARIES [id number] 09/20/2012 14:09:00 Document Registration
[2017-11-15 03:11] VITALS: BP 115/61
[2017-11-15] MEDS ORDERED: PIPERACILLIN SODIUM/TAZOBACTAM 4.5 GM in NS (IVPB) 100 ML IV ONE (03:30)
[2017-11-15] MEDS ORDERED: KETOROLAC 30 MG/ML VIAL IVP PRN (03:30)
[2017-11-15] MEDS ORDERED: ONDANSETRON 4 MG/2 ML (SDV) Z0FRAN IV PRN (03:30)
[2017-11-15] MEDS: HYDROcodone/APAP 5 MG/325 MG (LORTAB) TAB PO PRN (03:33)
[2017-11-15] MEDS: NS W/KCL 20 MEQ/L 1,000 ML IV SCH ×3 (03:33→11:00)
[2017-11-15 05:14] LABS: BASOPHILS % (AUTO) 0 % (0-10); EOSINOPHILS # (AUTO) 0.2 10^3/uL (0.0-0.3); EOSINOPHILS % (AUTO) 3 % (0-10); HEMATOCRIT 37 % (35-52); HEMOGLOBIN 12.1 G/DL (11.5-16.0); LYMPHOCYTES % (AUTO) 34 % (12-44); MEAN CORPUSCULAR HEMOGLOBIN 32 PG (25-34); MEAN CORPUSCULAR HGB CONC 33 G/DL (32-36); MEAN CORPUSCULAR VOLUME 97 FL (80-99); MEAN PLATELET VOLUME 9.3 FL (7.4-10.4); MONOCYTES # (AUTO) 0.9 X 10^3 (0.0-1.0); MONOCYTES % (AUTO) 10 % (0-12); NEUTROPHILS # (AUTO) 4.8 X 10^3 (1.8-7.8); NEUTROPHILS % (AUTO) 54 % (42-75); PLATELET COUNT 342 10^3/uL (130-400); RED BLOOD COUNT 3.75 10^6/uL (4.35-5.85); RED CELL DISTRIBUTION WIDTH 13.2 % (10.0-14.5); WHITE BLOOD COUNT 8.9 10^3/uL (4.3-11.0)
[2017-11-15 05:37] LABS: ALANINE AMINOTRANSFERASE 29 U/L (0-55); ALBUMIN 3.8 GM/DL (3.2-4.5); ALKALINE PHOSPHATASE 69 U/L (40-136); BILIRUBIN,TOTAL 0.4 MG/DL (0.1-1.0); BUN/CREATININE RATIO 17; CALCIUM 9.1 MG/DL (8.5-10.1); CARBON DIOXIDE 24 MMOL/L (21-32); CHLORIDE 108 MMOL/L (98-107); CREATININE SERUM 0.63 MG/DL (0.60-1.30); GFR ESTIMATED > 60; GLUCOSE 95 MG/DL (70-105); SODIUM 137 MMOL/L (135-145); TOTAL PROTEIN 7.4 GM/DL (6.4-8.2)
--- NOTE | 2017-11-15 07:40 | Diagnostic Imaging Report ---
PROCEDURE: CT maxillofacial with contrast. TECHNIQUE: After intravenous administration of contrast, axial images were obtained through the face and reformatted into coronal and sagittal planes. INDICATION: Left-sided facial swelling. FINDINGS: There are multiple dental caries demonstrated with the largest involving of the left mandibular molars. There is some adjacent lucency demonstrated about the left second molar tooth root suggesting a periapical abscess. There is adjacent left perimandibular soft tissue induration compatible with cellulitis but no definable or drainable abscess. There is an enlarged left submandibular lymph node measuring up to 1.9 cm. The posterior nasopharynx and oropharynx demonstrate no focal abnormality. There is mild prominence of the adenoids. There is no displacement of the peripharyngeal fat planes. There is no abnormal process within the prevertebral or retropharyngeal space. There is no thickening of the epiglottis and the larynx appears appropriately symmetric. The parotid and submandibular glands are unremarkable. Visualized intracranial contents demonstrate no mass effect or abnormal enhancement. The mastoid air cells are clear. There is moderate mucosal thickening in the left ethmoids. IMPRESSION: 1. Multiple dental caries with the largest involving the left second mandibular molar which also has lucency about its root suggesting a periapical abscess. 2. Abnormal left perimandibular facial soft tissue induration and stranding compatible with a cellulitis. There is no drainable abscess. 3. Left submandibular lymphadenopathy is on a presumed reactive basis. 4. No current narrowing of the airway demonstrated. Dictated by: Dictated on workstation # [id number]
[2017-11-15] MEDS: NICOTINE 21 MG (NICODERM) PATCH TD SCH (07:51)
--- NOTE | 2017-11-15 08:01 | Progress Note-Standard ---
Standard Progress Note Progress Notes/Assess & Plan Date Seen by Provider: Nov 15, 2017 Time Seen by Provider: 07:30 Progress/Assessment & Plan ENT-Cynthia Patient seen and evaluated Films reviewed Patient with bad lower left molar-no abscess x-ray suggests early infection in bone but if tooth taken care of it should clear reports doing better this am-on zosyn with reduced swelling pain-able to eat and drink no trismus exam shows broken lower left second molar with mild asssociataed swelling over lower border of the mandible Imp-Early Dental abscess-improved Rec: 1. Patient needs to see a dentist to have tooth pulled-That should clear the bone fidnings-I wrote prescriptions for pcn vk 500mg four times/day for the n ext ten days and also wrote a presxcription for hydrocodone - number 40 2. She needs to call her dentist on thursday or call [facility] for an apt to have t he tooth pulled 3. not planning on folowing up with me as she is improved and nothing surgical to be done Final Diagnosis Left Dental Abscess-Early Focused Exam Lactate Level 11/14/17 22:18: Lactic Acid Level 0.92 MARJORIE MEDINA MD Nov 15, 2017 8:01 am
[2017-11-15 08:54] VITALS: BP 129/60
[2017-11-15] MEDS: PIPERACILLIN SODIUM/TAZOBACTAM 4.5 GM in NS (IVPB) 100 ML IV SCH ×2 (09:18→17:33)
[2017-11-15 11:14] VITALS: BP 118/62
[2017-11-15] MEDS: ACETAMINOPHEN 325 MG TABLET/CAPLET (TYLENOL) PO PRN ×2 (11:18→17:33)
--- NOTE | 2017-11-15 12:37 | History & Physical-Hospitalist ---
History of Present Illness HPI/Chief Complaint Pt is a 22yoCF who presented to the Er with CC of facial swelling. She states 2 days ago she started to get a toothache and it has been progressing since then. She noticed a small amount of swelling under her chin yesterday morning but thought it was due to her getting a cold. It continued to progress throughout the day and she went to an ER in [place] and was prescribed Amoxil and Tylenol and advised to go to a larger hospital if it got worse. It continued to swell and she developed a fever of 101.7 last night prompting her to seek evaluation here. CT was done with revealed signs concerning for osteomyelitis of the mandible. She was admitted for surgical evaluation and IV abx. She states she is feeling well today and no longer febrile. She was told by Dr Marie she could discharge today and follow up with a dentist tomorrow but she is uncomfortable with that plan as she does not have a dentist. Source: patient Date Seen 11/15/17 Time Seen by Provider: 10:45 Attending Physician Tomy Ernst MD PCP Juan Gray MD Referring Physician Date of Admission Nov 15, 2017 at 12:40 am Home Medications & Allergies Home Medications Reviewed patient Home Medication Reconciliation performed by pharmacy medication reconciliations dental technician and/or nursing. Patients Allergies have been reviewed. Allergies Allergies Coded Allergies No Known Drug Allergies (Unverified04/27/13) Past Otrddqr-Kdozjn-Wchlol Hx Past Med/Social Hx: Reviewed Nursing Past Med/Soc Hx Patient Social History Marrital Status: single Alcohol Use: Denies Use Recreational Drug Use: No Smoking Status: Current Everyday Smoker Cigaretts per day: 10 Type Used: Cigarettes 2nd Hand Smoke Exposure: No Physical Abuse Screen: No Sexual Abuse: No Recent Foreign Travel: No Contact w/other who traveled: No Recent Hopitalizations: No Recent Infectious Disease Expo: No Immunizations Up To Date Tetanus Booster (TDap): Less than 5yrs Seasonal Allergies Seasonal Allergies: No Past Medical History Surgeries: Section, Orthopedic, Tonsillectomy Reproductive: No Genitourinary: UTI-Chronic Psychosocial: Anxiety, Bipolar, Depression History of Blood Disorders: No Adverse Reaction to Blood Spence: No Family History Reviewed Nursing Family Hx Alcoholism 19 MOTHER (Cousin) Arthritis 19 MOTHER Asthma 19 MOTHER Cataracts 19 MOTHER (MGM) Congenital disease 19 MOTHER (Cousin has CP) Deafness or hearing loss 19 MOTHER (Cousin) Diabetes mellitus 19 MOTHER (Mother, uncle, several family members) Gastroenteritis 19 MOTHER (IBS, colitis) Hypercholesterolemia 19 MOTHER Hypertension 19 MOTHER (MGM, aunts and uncles) Myocardial infarction 19 MOTHER (Uncle, aunt) Prostate cancer 19 MOTHER (Grandpa) Psychosocial problem 19 MOTHER (Depression, anxiety) Respiratory disorder 19 MOTHER (asthma) Seizure disorder 19 MOTHER (aunt) Severe allergy 19 MOTHER Thyroid disease 19 MOTHER (Thyroid CA) No Family History of: AIDS Abdominal aortic aneurysm Mercer's disease Alzheimer's disease Aphasia Cancer of mouth Cardiovascular disease Colon cancer Completed stroke Congenital heart disease Coronary thrombosis Cystic fibrosis Dementia Drug abuse Dysphasia Fibrocystic disease of breast Glaucoma Headache disorder Infertility Kidney disease Neoplasm Not obtainable due to adoption Osteoporosis Parkinson's disease Tuberculosis Visual disorder Review of Systems Constitutional: No chills, fever EENTM: mouth pain, mouth swelling, No blurred vision, No double vision, No nose congestion, No throat pain Respiratory: No cough, No dyspnea on exertion, No short of breath Cardiovascular: No chest pain, No edema, No palpitations Gastrointestinal: No abdominal pain, No constipation, No diarrhea, No nausea, No vomiting Genitourinary: No dysuria, No frequency Musculoskeletal: No joint pain, No muscle pain Skin: No lesions, No rash Psychiatric/Neurological: Denies Headache, Denies Numbness, Denies Tingling All Other Systems Reviewed Negative Unless Noted: Yes (Negative excepted noted.) Physical Exam Physical Exam Vital Signs Vital Signs - First Documented 11/14/17 20:33 Temp 99.1 Pulse 77 Resp 14 B/P (MAP) 138/68 (91) Pulse Ox 98 O2 Delivery Room Air Capillary Refill : Less Than 3 Seconds General Appearance: No Apparent Distress, WD/WN HEENT: PERRL/EOMI, Moist Mucous Membranes, Other (significant left submandibular swelling, no erythema) Neck: Non Tender, Supple Respiratory: Lungs Clear, No Respiratory Distress Cardiovascular: Regular Rate, Rhythm, No Murmur Gastrointestinal: Normal Bowel Sounds, Non Tender, Soft Extremity: Normal Capillary Refill, No Calf Tenderness, No Pedal Edema Neurologic/Psychiatric: Alert, Oriented x3, Normal Mood/Affect Skin: Normal Color, Warm/Dry Results Results/Procedures Labs Laboratory Tests 11/14/17 22:06 4/8/18 05:05 Patient resulted labs reviewed. Imaging: Reviewed Imaging Report Imaging Date of Exam: 11/14/17 CT MAXILLOFACIAL W PROCEDURE: CT maxillofacial with contrast. TECHNIQUE: After intravenous administration of contrast, axial images were obtained through the face and reformatted into coronal and sagittal planes. INDICATION: Left-sided facial swelling. FINDINGS: There are multiple dental caries demonstrated with the largest involving of the left mandibular molars. There is some adjacent lucency demonstrated about the left second molar tooth root suggesting a periapical abscess. There is adjacent left perimandibular soft tissue induration compatible with cellulitis but no definable or drainable abscess. There is an enlarged left submandibular lymph node measuring up to 1.9 cm. The posterior nasopharynx and oropharynx demonstrate no focal abnormality. There is mild prominence of the adenoids. There is no displacement of the peripharyngeal fat planes. There is no abnormal process within the prevertebral or retropharyngeal space. There is no thickening of the epiglottis and the larynx appears appropriately symmetric. The parotid and submandibular glands are unremarkable. Visualized intracranial contents demonstrate no mass effect or abnormal enhancement. The mastoid air cells are clear. There is moderate mucosal thickening in the left ethmoids. IMPRESSION: 1. Multiple dental caries with the largest involving the left second mandibular molar which also has lucency about its root suggesting a periapical abscess. 2. Abnormal left perimandibular facial soft tissue induration and stranding compatible with a cellulitis. There is no drainable abscess. 3. Left submandibular lymphadenopathy is on a presumed reactive basis. 4. No current narrowing of the airway demonstrated. Assessment/Plan Admission Diagnosis Dental caries with underlying mandibular osteomyelitis Admission Status: Inpatient Order (span 2 midnights) Reason for Inpatient Admission: IV abx, failed outpatient abx Diagnosis/Problems Diagnosis/Problems (1) Osteomyelitis of mandible Status: Acute Assessment & Plan: Continue on Zosyn ENT consulted, appreciate recs No apparent need for further imaging, recommends outpatient antibiotics Will need follow up with dentist upon discharge Blood cultures obtained in ER- will await results prior to DC Does not meet sepsis criteria (2) Dental caries Status: Acute Assessment & Plan: Will need to follow up with Dentist (3) Prophylactic measure Assessment & Plan: Lovenox Reg Diet Saline lock Clinical Quality Measures DVT/VTE Risk/Contraindication: Risk Factor Score Per Nursin RFS Level Per Nursing on Admit: 3=High ISIDORO,TOMY M MD Nov 15, 2017 12:37 pm
[2017-11-15 16:07] VITALS: BP 115/57
[2017-11-15 20:00] VITALS: BP 128/59
[2017-11-15 23:16] VITALS: BP 134/76
[2017-11-16] MEDS: HYDROcodone/APAP 5 MG/325 MG (LORTAB) TAB PO PRN (00:46)
[2017-11-16] MEDS: PIPERACILLIN SODIUM/TAZOBACTAM 4.5 GM in NS (IVPB) 100 ML IV SCH ×2 (01:33→10:43)
[2017-11-16] MEDS: ACETAMINOPHEN 325 MG TABLET/CAPLET (TYLENOL) PO PRN (05:41)
[2017-11-16 07:48] VITALS: BP 124/62
[2017-11-16] MEDS: NICOTINE 21 MG (NICODERM) PATCH TD SCH (08:36)
[2017-11-16] MEDS ORDERED: PENI500T PO (09:37)
[2017-11-16] MEDS ORDERED: ACHD5005 PO (09:37)
--- NOTE | 2017-11-16 09:37 | Discharge Summary-Hospitalist ---
Diagnosis/Chief Complaint Date of Admission Nov 15, 2017 at 00:40 Date of Discharge Discharge Date: Nov 16, 2017 Admission Diagnosis Dental caries with underlying mandibular osteomyelitis Discharge Diagnosis (1) Osteomyelitis of mandible Status: Acute Assessment & Plan: Continue on Zosyn ENT consulted, appreciate recs No apparent need for further imaging, recommends outpatient antibiotics Will need follow up with dentist upon discharge Blood cultures obtained in ER- will await results prior to DC Does not meet sepsis criteria (2) Dental caries Status: Acute Assessment & Plan: Will need to follow up with Dentist (3) Prophylactic measure Assessment & Plan: Lovenox Reg Diet Saline lock Discharge Summary Discharge Physical Exam Allergies: Coded Allergies: No Known Drug Allergies (Unverified , 04/27/13) Vitals & I&Os Vital Signs Date Time Temp Pulse Resp B/P (MAP) Pulse Ox O2 Delivery O2 Flow Rate FiO2 11/16/17 09:10 Room Air 11/16/17 07:48 97.9 66 18 124/62 (82) 96 General Appearance: Alert, Oriented X3, Cooperative Psych/Mental Status: Mental Status NL Hospital Course Patient had a brief hospital course. She was admitted and placed on broad spectrum abx and Dr Marie was consulted which assessed her to have no urgent surgical issue. Dentist appt was obtained for 11/23/17. Left mandible improved rapidly and she had no fever noted and the swelling had almost completely resolved and she was in agreement for DC home. Abx were Rxed to complete for the infection. Labs (last 24 hrs) Microbiology 11/14/17 Blood Culture - Preliminary, Resulted No growth Patient resulted labs reviewed. Imaging: Reviewed Imaging Report Discussion & Recommendations Discharge Planning: <30 minutes discharge planning Discharge Home Medications: Active Scripts Active Hydrocodone/Acetaminophen 5/325mg Tablet (Acetaminophen/Hydrocodone Bitart) 1 Tab Tab 1-2 Tab PO Q4H PRN Penicillin V Potassium 500 Mg Tablet 500 Mg PO QID Instructions to patient/family Please see electronic discharge instructions given to patient. Clinical Quality Measures DVT/VTE Risk/Contraindication: Risk Factor Score Per Nursin RFS Level Per Nursing on Admit: 3=High ALFREDA BAPTISTE DO Nov 16, 2017 09:37
== END 2017-11-16 11:16 | disposition home or self-care (01) | DRG 159 ==
LOC: EDUNIT# 20:09 → ER 20:11 → 4TH 11-15 00:40
PROVIDERS: ADMIT Family Medicine; ATTEND Family Medicine
DX: M27.2 Inflammatory conditions of jaws (principal); K02.9 Dental caries, unspecified; F17.210 Nicotine dependence, cigarettes, uncomplicated; F31.9 Bipolar disorder, unspecified; F41.9 Anxiety disorder, unspecified
CPT/HCPCS: 36415; 70487; 80053; 81000; 83605; 84703; 85025; 87040; 96361; 96365; 96375

== ENCOUNTER 2018-07-05 21:54 | Emergency (ER) | payer SELFPAY ==
[~2018-07-05] VITALS: Ht 167.6 cm; Wt 127.0 kg
[~2018-07-05 21:54] MED LIST changes: +ACHD5005 PO; +PENI500T PO
[2018-07-05 22:26] LABS: BILIRUBIN,URINE NEGATIVE (NEGATIVE); CLARITY,URINE CLEAR; COLOR,URINE YELLOW; GLUCOSE, URINE (UA) NEGATIVE (NEGATIVE); KETONES,URINE NEGATIVE (NEGATIVE); LEUKOCYTE ESTERASE ,URINE 1+ (NEGATIVE); NITRITE,URINE NEGATIVE (NEGATIVE); PH,URINE 5 (5-9); PROTEIN,URINE 1+ (NEGATIVE); UROBILINOGEN,URINE NORMAL (NORMAL)
[2018-07-05 22:34] LABS: BACTERIA,URINE MODERATE /HPF; RBC,URINE RARE /HPF
[2018-07-05 22:43] LABS: BASOPHILS % (AUTO) 0 % (0-10); EOSINOPHILS # (AUTO) 0.1 10^3/uL (0.0-0.3); EOSINOPHILS % (AUTO) 1 % (0-10); HEMATOCRIT 38 % (35-52); HEMOGLOBIN 12.8 G/DL (11.5-16.0); LYMPHOCYTES # (AUTO) 3.3 X 10^3 (1.0-4.0); LYMPHOCYTES % (AUTO) 28 % (12-44); MEAN CORPUSCULAR HEMOGLOBIN 32 PG (25-34); MEAN CORPUSCULAR HGB CONC 34 G/DL (32-36); MEAN CORPUSCULAR VOLUME 95 FL (80-99); MEAN PLATELET VOLUME 9.5 FL (7.4-10.4); MONOCYTES # (AUTO) 1.1 X 10^3 (0.0-1.0); MONOCYTES % (AUTO) 9 % (0-12); NEUTROPHILS # (AUTO) 7.1 X 10^3 (1.8-7.8); NEUTROPHILS % (AUTO) 62 % (42-75); PLATELET COUNT 440 10^3/uL (130-400); RED BLOOD COUNT 4.01 10^6/uL (4.35-5.85); RED CELL DISTRIBUTION WIDTH 13.6 % (10.0-14.5); WHITE BLOOD COUNT 11.6 10^3/uL (4.3-11.0)
--- NOTE | 2018-07-05 22:58 | ED GU-Female ---
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 Nursing Sepsis Screen: No Definite Risk Source: patient Exam Limitations: no limitations History of Present Illness Date Seen by Provider: Jul 05, 2018 Time Seen by Provider: 22:15 Initial Comments PT ARRIVES VIA POV FROM HOME PT STATES SHE IS 10 WEEKS --LMP END OF . C/O LOWER ABDOMINAL CRAMPING X 2 HOURS--PAIN IS NEAR VAGINA AND SHOOTS UP TO MID ABDOMEN AND INTO BACK --PAIN COMES AND GOES AND IS NOT PRESENT NOW. HAD A TINY AMOUNT OF SPOTTING X1 TODAY AROUND 11:00 AM--SMALL AMOUNT OF BLOOD ON TISSUE WITH WIPING. NO BLEEDING SINCE THEN NO PROBLEMS URINATING OR PAIN ON URINATION NO FEVER NO NAUSEA/VOMITING OR DIARRHEA/CONSTIPATION HAD FIRST OB APPOINTMENT WITH DR. BASHIR 4 WEEKS AGO, NEXT APPOINTMENT 07/15/18. NO ULTRASOUND PT IS AB 0 NO PCP GOES TO DR. BASHIR FOR OB CARE Allergies and Home Medications Allergies Coded Allergies: No Known Drug Allergies (Unverified , 04/27/13) Home Medications Hydrocodone Bit/Acetaminophen 1 Tab Tab, 1-2 TAB PO Q4H PRN for PAIN-MODERATE Prescribed by: ALFREDA BAPTISTE on 11/16/17936 Penicillin V Potassium 500 Mg Tablet, 500 MG PO QID Prescribed by: ALFREDA BAPTISTE on 11/16/17 09 Patient Home Medication List Home Medication List Reviewed: Yes Review of Systems Review of Systems Constitutional: no symptoms reported; No chills, No diaphoresis, No dizziness, No fever Respiratory: no symptoms reported Cardiovascular: no symptoms reported Gastrointestinal: see HPI, abdominal pain; No constipation, No diarrhea, No loss of appetite, No nausea, No vomiting Genitourinary: see HPI : Yes LMP: Apr 10, 2018 Musculoskeletal: see HPI, back pain Skin: no symptoms reported Psychiatric/Neurological: No Symptoms Reported Endocrine: No Symptoms Reported Past Sobyemc-Lxuydz-Oguayg Hx Patient Social History Alcohol Use: Occasionally Uses Recreational Drug Use: Yes (THC IN PAST) Drug of Choice: MARIJUANA IN PAST Smoking Status: Current Everyday Smoker (1 PPD) Type Used: Cigarettes (1 PPD) 2nd Hand Smoke Exposure: No Recent Foreign Travel: No Contact w/Someone Who Travel: No Recent Infectious Disease Expo: No Recent Hopitalizations: No Immunizations Up To Date Tetanus Booster (TDap): Less than 5yrs Seasonal Allergies Seasonal Allergies: No Past Medical History Surgeries: Yes (WISDOM TEETH; RIGHT KNEE SURGERY; ) Orthopedic, Tonsillectomy Respiratory: No Cardiac: No Neurological: No : Yes (STATES 10 WEEKS LMP "FIRST ") Hx : 3 Hx Para: 2 ('S ) Hx Total # of Abortions (Sp): 0 Reproductive Disorders: No Genitourinary: Yes UTI-Chronic Gastrointestinal: No Musculoskeletal: Yes (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) Endocrine: No HEENT: Yes (OSTEOMYELITIS OF MANDIBLE DUE TO DENTAL CARIES 11/2017) Cancer: No Psychosocial: Yes Anxiety, Bipolar, Depression Integumentary: No Blood Disorders: No Adverse Reaction/Blood Tranf: No Family Medical History Alcoholism 19 MOTHER (Cousin) Arthritis 19 MOTHER Asthma 19 MOTHER Cataracts 19 MOTHER (MGM) Congenital disease 19 MOTHER (Cousin has CP) Deafness or hearing loss 19 MOTHER (Cousin) Diabetes mellitus 19 MOTHER (Mother, uncle, several family members) Gastroenteritis 19 MOTHER (IBS, colitis) Hypercholesterolemia 19 MOTHER Hypertension 19 MOTHER (MGM, aunts and uncles) Myocardial infarction 19 MOTHER (Uncle, aunt) Prostate cancer 19 MOTHER (Grandpa) Psychosocial problem 19 MOTHER (Depression, anxiety) Respiratory disorder 19 MOTHER (asthma) Seizure disorder 19 MOTHER (aunt) Severe allergy 19 MOTHER Thyroid disease 19 MOTHER (Thyroid CA) No Family History of: AIDS Abdominal aortic aneurysm German's disease Alzheimer's disease Aphasia Cancer of mouth Cardiovascular disease Colon cancer Completed stroke Congenital heart disease Coronary thrombosis Cystic fibrosis Dementia Drug abuse Dysphasia Fibrocystic disease of breast Glaucoma Headache disorder Infertility Kidney disease Neoplasm Not obtainable due to adoption Osteoporosis Parkinson's disease Tuberculosis Visual disorder Physical Exam Vital Signs Vital Signs - First Documented 07/05/18 07/05/18 22:08 23:54 Temp 99.5 Pulse 88 Resp 17 B/P (MAP) 146/81 (102) Pulse Ox 100 O2 Delivery Room Air Capillary Refill : Less Than 3 Seconds Height, Weight, BMI Height: 5'6.00" Weight: 280lbs. 0.0oz. 127.195320ip; 45.2 BMI Method:Stated General Appearance: no apparent distress, obese, other (REEKS OF CIGARETTES) Cardiovascular: regular rate, rhythm, no murmur Respiratory: normal breath sounds Gastrointestinal: normal bowel sounds, soft, no organomegaly, no pulsatile mass , other (LARGE PANNUS) Back: no CVA tenderness Extremities: normal inspection, no pedal edema, no calf tenderness, normal capillary refill Neurologic/Psychiatric: gold marker II-XII nml as tested, no motor/sensory deficits, alert, normal mood/affect, oriented x 3 Skin: normal color, warm/dry, other (EXTENSIVE SORES, SCABS AND SCARS TO PANNUS FOLDS, WITH MULTIPLE AREAS OF LOCAL CELLULITIS--PT STATES THIS IS CHRONIC /NORMAL FOR HER AND IS BEING TREATED WITH DOXYCYCLINE FOR IT. ) Progress/Results/Core Measures Suspected Sepsis Recent Fever Within 48 Hours: No Infection Criteria Present: None New/Unexplained Altered Menta: No Sepsis Screen: No Definite Risk SIRS Temperature:99.5 Pulse: 88 Respiratory Rate: 17 Laboratory Tests 07/05/18 22:35: White Blood Count 11.6H Blood Pressure 146 /81 Mean: 102 Laboratory Tests 07/05/18 22:35: Creatinine 0.72, Platelet Count 440H Results/Orders Lab Results Laboratory Tests Test 07/05/18 22:17 07/05/18 22:35 Range/Units Urine Color YELLOW Urine Clarity CLEAR Urine pH 5 5-9 Urine Specific Waldron 1.025 H 1.016-1.022 Urine Protein 1+ H NEGATIVE Urine Glucose (UA) NEGATIVE NEGATIVE Urine Ketones NEGATIVE NEGATIVE Urine Nitrite NEGATIVE NEGATIVE Urine Bilirubin NEGATIVE NEGATIVE Urine Urobilinogen NORMAL NORMAL MG/DL Urine Leukocyte Esterase 1+ H NEGATIVE Urine RBC (Auto) 1+ H NEGATIVE Urine RBC RARE /HPF Urine WBC 2-5 /HPF Urine Squamous Epithelial Cells 10-25 H /HPF Urine Crystals NONE /LPF Urine Bacteria MODERATE H /HPF Urine Casts NONE /LPF Urine Mucus LARGE H /LPF Urine Culture Indicated NO White Blood Count 11.6 H 4.3-11.0 10^3/uL Red Blood Count 4.01 L 4.35-5.85 10^6/uL Hemoglobin 12.8 11.5-16.0 G/DL Hematocrit 38 35-52 % Mean Corpuscular Volume 95 80-99 FL Mean Corpuscular Hemoglobin 32 25-34 PG Mean Corpuscular Hemoglobin Concent 34 32-36 G/DL Red Cell Distribution Width 13.6 10.0-14.5 % Platelet Count 440 H 130-400 10^3/uL Mean Platelet Volume 9.5 7.4-10.4 FL Neutrophils (%) (Auto) 62 42-75 % Lymphocytes (%) (Auto) 28 12-44 % Monocytes (%) (Auto) 9 0-12 % Eosinophils (%) (Auto) 1 0-10 % Basophils (%) (Auto) 0 0-10 % Neutrophils # (Auto) 7.1 1.8-7.8 X 10^3 Lymphocytes # (Auto) 3.3 1.0-4.0 X 10^3 Monocytes # (Auto) 1.1 H 0.0-1.0 X 10^3 Eosinophils # (Auto) 0.1 0.0-0.3 10^3/uL Basophils # (Auto) 0.0 0.0-0.1 10^3/uL Sodium Level 137 135-145 MMOL/L Potassium Level 3.6 3.6-5.0 MMOL/L Chloride Level 104 98-107 MMOL/L Carbon Dioxide Level 21 21-32 MMOL/L Anion Gap 12 5-14 MMOL/L Blood Urea Nitrogen 10 7-18 MG/DL Creatinine 0.72 0.60-1.30 MG/DL Estimat Glomerular Filtration Rate > 60 BUN/Creatinine Ratio 14 Glucose Level 84 70-105 MG/DL Calcium Level 10.1 8.5-10.1 MG/DL Human Chorionic Gonadotropin, Quant 60689 H <5 MIU/ML My Orders Orders - HARINDER STUBBS DO Urine Bedside (07/05/18 22:15) Basic Metabolic Panel (07/05/18 22:15) Cbc With Automated Diff (07/05/18 22:15) Hcg,Quantitative (07/05/18 22:15) Ua Culture If Indicated (07/05/18 22:15) Vital Signs/I&O 07/05/18 07/05/18 22:08 23:54 Temp 99.5 99.5 Pulse 88 88 Resp 17 17 B/P (MAP) 146/81 (102) 146/81 (102) Pulse Ox 100 O2 Delivery Room Air Capillary Refill : Less Than 3 Seconds Blood Pressure Mean: 102 Point of Care Testing Urine -Bedside: Positive Progress Note : Progress Note NO ULTRASOUND SERVICES AVAILABLE AFTER HOURS PT HAS HAD NO VAGINAL BLEEDING DURING ER STAY AND NO COMPLAINTS OF CRAMPING FOR REMAINDER OF ER STAY UNABLE TO DETECT FHT'S BY DOPPLER, BUT POSSIBLY LIMITED BY PT'S SIZE AND LARGE PANNUS. BLOOD TYPE A+ Departure Impression Primary Impression: Threatened in first trimester Disposition: HOME, SELF-CARE Condition: Stable Departure-Patient Inst. Referrals: ROLAN BASHIR MD (PCP) Primary Care Physician ARIADNA XIAO APRN (Family) Primary Care Physician Patient Instructions: Bleeding With (DC), Threatened Miscarriage (DC) Add. Discharge Instructions: LOTS OF FLUIDS NOTHING IN VAGINA--NO TAMPONS, DOUCHING OR INTERCOURSE TYLENOL NEEDED FOR PAIN FOLLOW UP WITH DR. BASHIR IN 1-2 DAYS FOR FURTHER CARE RETURN TO ER IF SOAKING MORE THAN 1 MAXI PAD AN HOUR All discharge instructions reviewed with patient and/or family. Voiced understanding. HARINDER STUBBS DO Jul 05, 2018 22:58
[2018-07-05 23:04] LABS: BUN/CREATININE RATIO 14; CALCIUM 10.1 MG/DL (8.5-10.1); CARBON DIOXIDE 21 MMOL/L (21-32); CHLORIDE 104 MMOL/L (98-107); CREATININE SERUM 0.72 MG/DL (0.60-1.30); GFR ESTIMATED > 60; GLUCOSE 84 MG/DL (70-105); POTASSIUM 3.6 MMOL/L (3.6-5.0); SODIUM 137 MMOL/L (135-145)
[2018-07-05 23:54] VITALS: BP 146/81
== END 2018-07-05 23:55 | disposition home or self-care (01) ==
LOC: EDUNIT# 21:54 → ER 21:55
DX: O20.0 Threatened abortion (principal); O99.331 Smoking (tobacco) complicating pregnancy, first trimester; F17.210 Nicotine dependence, cigarettes, uncomplicated; O99.321 Drug use complicating pregnancy, first trimester; F12.10 Cannabis abuse, uncomplicated; O99.341 Other mental disorders complicating pregnancy, first trimester; F41.9 Anxiety disorder, unspecified; F31.9 Bipolar disorder, unspecified; Z3A.10 10 weeks gestation of pregnancy; Z90.89 Acquired absence of other organs; Z87.440 Personal history of urinary (tract) infections; Z82.49 Family history of ischemic heart disease and other diseases of the circulatory system; Z80.42 Family history of malignant neoplasm of prostate
CPT/HCPCS: 36415; 80048; 81000; 84702; 84703; 85025

== ENCOUNTER → 2018-07-29 | Outpatient (CLI) | payer MEDICAID ==
--- NOTE | 2018-07-29 15:14 | Diagnostic Imaging Report ---
PROCEDURE: US OB SINGLE FETUS <14 WKS. TECHNIQUE: Multiple real-time grayscale images were obtained over the gravid uterus in various projections. INDICATION: Subchorionic hemorrhage. There is an intrauterine gestational sac containing a pole. Ralls-rump length measurement is approximately 3.9 cm consistent with 10 weeks 6 days gestation. heart rate was recorded at 160 beats per minute. No perigestational sac hemorrhage is identified. A gestational sac shape is within normal limits. Ovaries are not visualized. No free fluid is seen. IMPRESSION: Single IUP 10 weeks 6 days gestational age. Estimated date of confinement sonographically is 02/18/2019. Dictated by: Dictated on workstation # [id number]
== END ==
LOC: RAD 12:53
PROVIDERS: ATTEND Family Medicine
DX: O20.8 Other hemorrhage in early pregnancy (principal); Z3A.10 10 weeks gestation of pregnancy
CPT/HCPCS: 76801

== ENCOUNTER → 2018-09-20 | Outpatient (CLI) | payer MEDICAID ==
--- NOTE | 2018-09-20 11:16 | Diagnostic Imaging Report ---
INDICATION: survey. TECHNIQUE: Multiple real-time grayscale images were obtained over the gravid uterus. COMPARISON: 07/29/2018. FINDINGS: There is a single live fetus in a variable presentation. heart rate was recorded at 132 beats per minute. Placenta appears to be fundal and to the left. Amniotic fluid volume appears to be grossly unremarkable. Cervical length is 4.4 cm. The survey is somewhat limited due to position. kidneys, stomach, brain as well as four-chamber heart and three-vessel cord and spine were limited in evaluation. The cord insertion appears to be unremarkable. The bladder was visualized. Biometrical measurements are as follows: Biparietal 4.27 cm, age 19 weeks 0 days. Head circumference 16.08 cm, age 19 weeks 0 days. Abdominal circumference 13.22 cm, age 18 weeks 6 days. Femur length 2.73 cm, age 18 weeks 3 days. Sonographic estimate age: 18 weeks 6 days. Sonographic estimated date of delivery: 02/15/2019. Estimated Weight: 247 gm (+/- 36 gm). LMP percentile: 55%. heart rate: 132 beats per minute. number: 1 of 1. IMPRESSION: Single live IUP approximately 19 weeks gestational age demonstrating normal interval growth when compared with prior ultrasound from 07/29/2018. survey is significantly limited due to position. Followup would be recommended. Dictated by: Dictated on workstation # [id number]
== END ==
LOC: RAD 09:29
PROVIDERS: ATTEND Family Medicine
DX: Z36.89 Encounter for other specified antenatal screening (principal); Z3A.19 19 weeks gestation of pregnancy
CPT/HCPCS: 76805

== ENCOUNTER → 2018-10-12 | Outpatient (CLI) | payer MEDICAID ==
--- NOTE | 2018-10-12 16:50 | Diagnostic Imaging Report ---
INDICATION: Incomplete anatomical assessment on prior imaging. Followup. TECHNIQUE: Multiple real-time grayscale images were obtained over the gravid uterus. COMPARISON: 09/20/2018 FINDINGS: Single viable intrauterine currently in cephalic presentation. Normal amount of amniotic fluid. The fundally positioned placenta on the left aspect has an unremarkable appearance. Cervical length at 4.4 cm. Maternal adnexa not visualized. anatomical assessment demonstrates unremarkable appearance about the kidneys, bladder, stomach, intracranial structures, four-chamber heart, three-vessel cord, cord insertion site as well as spine. Biometrical growth parameters not performed. heart rate: 135 beats per minute. number: 1 of 1. IMPRESSION: 1. Limited followup ultrasound imaging demonstrates unremarkable appearance about the visualized anatomical structures. No abnormalities suggested at this time. Dictated by: Dictated on workstation # [id number]
== END ==
LOC: RAD 09:18
PROVIDERS: ATTEND Family Medicine
DX: Z36.89 Encounter for other specified antenatal screening (principal); Z3A.00 Weeks of gestation of pregnancy not specified
CPT/HCPCS: 76816

== ENCOUNTER 2019-02-03 08:59 | Outpatient (CLI) | payer MEDICAID ==
--- NOTE | 2019-02-03 09:10 | NUR ---
ESTEE TORREZ presented to unit via ambulation from Dr. Palafox's office, with c/o DECREASE MOVEMENT for NST. EFHM and TOCO applied, VS taken. ESTEE TORREZ oriented to bed controls, call light, TV, heat, and A/C controls.
--- NOTE | 2019-02-03 09:43 | NUR ---
Dr. Palafox called and notified of reactive NST, ctx pattern, VS. Orders rec'd to dismiss.
[2019-02-03 09:45] VITALS: BP 113/57
--- NOTE | 2019-02-03 09:45 | NUR ---
US and TOCO removed. Pt ambulates self off unit to private vehicle with all personal belongings. No s/s of distress noted
== END 2019-02-03 09:45 | disposition home or self-care (01) ==
LOC: WSo 08:59 → LDRP 09:00 → WSo 09:45
PROVIDERS: ATTEND Family Medicine
DX: O36.8190 Decreased fetal movements, unspecified trimester, not applicable or unspecified (principal)
CPT/HCPCS: 59025

== ENCOUNTER 2019-02-15 06:00 | Inpatient (IN) | payer MEDICAID ==
[2019-02-15] VITALS (57 sets, daily range): BP systolic 87–218; BP diastolic 45–112
[~2019-02-15] VITALS: Ht 167.6 cm; Wt 129.3 kg
--- NOTE | 2019-02-15 06:00 | NUR ---
ESTEE TORREZ presented to unit via ambulatory from home, accompanied by family, with c/o INDUCTION. ESTEE TORREZ weighed, gowned, voided, and to bed. EFHM and TOCO applied, VS taken. ESTEE TORREZ oriented to bed controls, call light, TV, heat, and A/C controls.
--- OUTSIDE RECORDS SUMMARY | 2019-02-15 06:05 | XMS REPORT ---
Author Author MARJORIE CROCKER [facility] Address [address] [place] [address] Care Team Providers Care Psychiatric Aide Name Role Phone MARJORIE CROCKER Unavailable PROBLEMS Type Condition ICD9-CM Code [id number] Code Onset Dates Condition Status SNOMED Code Problem Hidradenitis suppurativa L73.2 Active 60144485 Problem Tobacco abuse Z72.0 Active 346855077 Problem BMI 40.0-44.9, adult Z68.41 Active 269190820 ALLERGIES No Information ENCOUNTERS Encounter Location Date Diagnosis [place] [id number] [place] [address] [id number] Jun, Encounter for test, result unknown Z32.00 [address] [id number] [place] [address] [id number] Apr, Encounter for IUD removal Z30.432 ; Hidradenitis suppurativa L73.2 ; BMI 40.0-44.9, adult Z68.41 and Tobacco abuse Z72.0 [facility] [address] [place] [address] [id number] Jan, Dental examination Z01.20 [address] [id number] [place] [address] [id number] December, Encounter for test, result unknown Z32.00 [facility] [address] [place] [phone] Oct, Encounter for IUD insertion Z30.430 [id number] [place] [address] [id number] 02 Oct, 2016 Encounter for other contraceptive management Z30.8 and General counseling and advice for contraceptive management Z30.[address] [place] [address] [id number] Aug, Hordeolum externum of right lower eyelid H00.012 and Viral conjunctivitis of both eyes B30.9 [facility] [id number] [place] [phone] Aug, [facility] [id number] [place] [address] [id number] Aug, Viral conjunctivitis of both eyes B30.9 and Headache above the eye region R51 [facility] [id number] [place] [phone] Jul, Dental examination Z01.20 [facility] [id number] [place] [address] [id number] Jun, Encounter for Depo-Provera contraception Z30.42 [facility] [id number] [place] [address] [phone] May, test negative Z32.02 [place] [id number] [place] [address] [id number] Mar, Encounter for Depo-Provera contraception Z30.42 [facility] [id number] [place] [address] [id number] Jan, Negative test Z32.[address] [id number] [place] [address] [phone] Jan, [facility] [id number] [place] [address] [id number] December, Encounter for Depo-Provera contraception Z30.42 [facility] [id number] [place] [address] [id number] Oct, Negative test Z32.02 [facility] [id number] [place] [address] [id number] Oct, Shingles B02.9 and Itching L29.9 [place] [id number] [place] [address] [id number] Oct, Negative test Z32.02 [facility] [id number] [place] [address] [id number] Sep, Encounter for Depo-Provera contraception Z30.42 [facility] [id number] [phone] 15 Sep, 2015 [facility] [address] [id number] Jul, Negative test Z32.02 [facility] [id number] [id number] Jun, Encounter for Depo-Provera contraception Z30.42 [facility] [address] [id number] Mar, General counseling for prescription of oral contraceptives V25.01 [facility] [id number] [address] 14 Aug, 2013 [facility] [id number] [place] [phone] Aug, [facility] [id number] [place] [phone] Jul, [facility] [id number] [place] [phone] Jul, [facility] [id number] [place] [phone] Jul, [facility] [id number] [address] Jun, [facility] [address] [phone] Jun, [facility] [address] [address] Jun, IMMUNIZATIONS No Known Immunizations SOCIAL HISTORY Never Assessed REASON FOR VISIT Test Carter HARRELL PLAN OF CARE Activity Details Pending Test TEST, URINE (IN HOUSE) VITAL SIGNS MEDICATIONS Unknown Medications RESULTS No Results PROCEDURES Procedure Date Ordered Result Body Site URINE TEST Jun 10, 2018 INSTRUCTIONS MEDICATIONS ADMINISTERED No Known Medications MEDICAL (GENERAL) HISTORY Type Description Date Medical History attention deficit hyperactivity disorder Medical History depression Surgical History tonsillectomy Surgical History knee surgery right knee 04/2016 Hospitalization History childbirth
--- OUTSIDE RECORDS SUMMARY | 2019-02-15 06:05 | XMS REPORT ---
Author Author Migration, Doctor Organization [facility] Address Unknown Phone Unavailable Care Team Providers Care Brush Maker Name Role Phone Migration, Doctor Unavailable Unavailable PROBLEMS Type Condition ICD9-CM Code [id number] Code Onset Dates Condition Status SNOMED Code Problem Tobacco abuse Z72.0 Active 379909123 Problem Hidradenitis suppurativa L73.2 Active 34466484 Problem BMI 40.0-44.9, adult Z68.41 Active 317194577 ALLERGIES No Information ENCOUNTERS Encounter Location Date Diagnosis [address] [place] [address] [id number] Jun, Encounter for test, result unknown Z32.00 [place] [id number] [place] [address] [id number] Apr, Encounter for IUD removal Z30.432 ; Hidradenitis suppurativa L73.2 ; BMI 40.0-44.9, adult Z68.41 and Tobacco abuse Z72.0 [facility] [address] [place] [address] [id number] Jan, Dental examination Z01.[address] [place] [address] [id number] December, Encounter for test, result unknown Z32.00 [facility] [address] [place] [phone] Oct, Encounter for IUD insertion Z30.430 [address] [place] [address] [id number] Oct, Encounter for other contraceptive management Z30.8 and General counseling and advice for contraceptive management Z30.09 [place] [id number] [place] [address] [id number] Aug, Hordeolum externum of right lower eyelid H00.012 and Viral conjunctivitis of both eyes B30.9 [place] [address], [place] [address] Aug, [facility] [id number] [place] [address] [id number] Aug, Viral conjunctivitis of both eyes B30.9 and Headache above the eye region R51 [facility] [address], [place] [address] Jul, Dental examination Z01.20 [facility] [id number] [place] [address] [id number] Jun, Encounter for Depo-Provera contraception Z30.42 [place] [id number] [place] [address] [id number] May, test negative Z32.02 [place] [id number] [place] [address] [id number] Mar, Encounter for Depo-Provera contraception Z30.42 [place] [id number] [place] [address] [id number] Jan, Negative test Z32.02 [place] [address] [facility] [id number] [phone] Jan, [facility] [id number] [place] [address] [id number] December, Encounter for Depo-Provera contraception Z30.42 [facility] [id number] [place] [address] [id number] Oct, Negative test Z32.02 [place] [id number] [place] [address] [id number] Oct, Shingles B02.9 and Itching L29.9 [place] [id number] [place] [address] [id number] Oct, Negative test Z32.02 [place] [id number] [place] [address] [id number] 16 Sep, 2015 Encounter for Depo-Provera contraception Z30.42 [place] [id number] [place] [address] [id number] Sep, [facility] [address] [id number] [id number] Jul, Negative test Z32.02 [facility] [address] [phone] Jun, Encounter for Depo-Provera contraception Z30.42 [address] [id number] Mar, General counseling for prescription of oral contraceptives V25.01 [facility] [address] [id number] [address] 14 Aug, 2013 [facility] [id number] [place] [phone] Aug, [facility] [id number] [place] [phone] Jul, [facility] [id number] [place] [phone] Jul, [facility] [id number] [place] [phone] Jul, [facility] [id number] [place] [phone] Jun, [facility] [address] [id number] [phone] Jun, [facility] [address] [place] [phone] Jun, IMMUNIZATIONS No Known Immunizations SOCIAL HISTORY Never Assessed REASON FOR VISIT EMR-[facility] PLAN OF CARE VITAL SIGNS MEDICATIONS Unknown Medications RESULTS No Results PROCEDURES No Known procedures INSTRUCTIONS MEDICATIONS ADMINISTERED No Known Medications MEDICAL (GENERAL) HISTORY Type Description Date Medical History attention deficit hyperactivity disorder Medical History depression Surgical History tonsillectomy Surgical History knee surgery right knee 04/2016 Hospitalization History childbirth
--- OUTSIDE RECORDS SUMMARY | 2019-02-15 06:05 | XMS REPORT ---
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 Name Role Phone TRUDIJODYMICHAEL YAMILET Unavailable PROBLEMS Type Condition ICD9-CM Code FUI84-EX Code Onset Dates Condition Status SNOMED Code Problem Hidradenitis suppurativa L73.2 Active 78240800 Problem Tobacco abuse Z72.0 Active 155520136 Problem BMI 40.0-44.9, adult Z68.41 Active 956607604 ALLERGIES No Known Allergies ENCOUNTERS Encounter Location Date Diagnosis [address] [id number] Apr, Encounter for IUD removal Z30.432 ; Hidradenitis suppurativa L73.2 ; BMI 40.0-44.9, adult Z68.41 and Tobacco abuse Z72.0 [facility] [address] [id number] Jan, 2017 Dental examination Z01.20 [facility] [id number] [place] [id number] December, Encounter for test, result unknown Z32.00 [facility] [id number] [place] [phone] Oct, Encounter for IUD insertion Z30.430 [id number] [place] [address] [id number] 02 Oct, 2016 Encounter for other contraceptive management Z30.8 and General counseling and advice for contraceptive management Z30.09 [facility] [address] [id number] Aug, Hordeolum externum of right lower eyelid H00.012 and Viral conjunctivitis of both eyes B30.9 [facility] [id number] [address] Aug, [facility] [id number] [place] [id number] Aug, Viral conjunctivitis of both eyes B30.9 and Headache above the eye region R51 [facility] [id number] [address] Jul, Dental examination Z01.20 [facility] [id number] [place] [address] [id number] Jun, Encounter for Depo-Provera contraception Z30.42 [place] [id number] [place] [address] [id number] May, test negative Z32.02 [place] [id number] [place] [address] [id number] Mar, Encounter for Depo-Provera contraception Z30.42 [place] [id number] [place] [address] [id number] Jan, Negative test Z32.[address] [id number] [id number] Jan, [place] [id number] [place] [address] [id number] December, Encounter for Depo-Provera contraception Z30.[id number] [place] [address] [id number] Oct, Negative test Z32.02 [place] [id number] [place] [address] [id number] Oct, Shingles B02.9 and Itching L29.9 [place] [id number] [place] [address] [id number] Oct, Negative test Z32.02 [place] [id number] [place] [address] [id number] 16 Sep, 2015 Encounter for Depo-Provera contraception Z30.42 [place] [id number] [place] [address] [id number] Sep, [facility] [id number] [id number] Jul, Negative test Z32.02 [facility] [id number] [place] [address] [id number] Jun, Encounter for Depo-Provera contraception Z30.42 [address] [place] [address] [id number] Mar, General counseling for prescription of oral contraceptives V25.01 [facility] [id number] [place] [phone] 14 Aug, 2013 [facility] [id number] [place] [phone] Aug, [facility] [id number] [place] [phone] Jul, [facility] [id number] [place] [phone] Jul, [facility] [id number] [place] [phone] Jul, [facility] [id number] [place] [phone] Jun, [facility] [id number] [place] [address] [phone] Jun, [facility] [id number] [place] [phone] Jun, IMMUNIZATIONS No Known Immunizations SOCIAL HISTORY Never Assessed REASON FOR VISIT IUD complications / pt wanting removed today. Pt c/o pelvic pain Carter HARRELL PLAN OF CARE Activity Details Follow Up prn Reason: VITAL SIGNS Height 66.5 in 2018-04-29 Weight 282 lbs 2018-04-29 Heart Rate 78 bpm 2018-04-29 Respiratory Rate 16 2018-04-29 BMI 44.83 kg/m2 2018-04-29 Blood pressure systolic 126 mmHg 2018-04-29 Blood pressure diastolic 70 mmHg 2018-04-29 MEDICATIONS Medication Instructions Dosage Frequency Start Date End Date Duration Status Mirena (52 MG) 20 MCG/24HR as directed Oct, Active Doxycycline Hyclate 100 mg Orally twice a day 1 capsule 12h 20 Apr, 2018 Jun, 60 days Active Doxycycline Hyclate 100 mg Orally Once a day 1 capsule 24h 20 Apr, 2018 Apr, 60 days Active RESULTS Name Result Date Reference Range TEST, URINE (IN HOUSE) 2018-04-30 RESULTS negative Lot # [id number] Control + Exp date 08/09/2019 PROCEDURES Procedure Date Ordered Result Body Site SMOKING AND TOBACCO USE CESSATION COUNSELING 3-10 MIN, INTERMEDIATE Apr 29, 2018 REMOVE INTRAUTERINE DEVICE Apr 29, 2018 URINE TEST Apr 29, 2018 INSTRUCTIONS MEDICATIONS ADMINISTERED No Known Medications MEDICAL (GENERAL) HISTORY Type Description Date Medical History attention deficit hyperactivity disorder Medical History depression Surgical History tonsillectomy Surgical History knee surgery right knee 04/2016 Hospitalization History childbirth
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
[2019-02-15] MEDS: D5 LR IV SOLUTION 1,000 ML IV SCH ×2 (06:10→13:41)
[2019-02-15] MEDS ORDERED: PREN-142 PO (06:29)
[2019-02-15] MEDS ORDERED: ACET-2267 PO (06:30)
[2019-02-15] MEDS ORDERED: CALC300T4 PO (06:30)
[2019-02-15 06:32] LABS: BASOPHILS % (AUTO) 0 % (0-10); EOSINOPHILS # (AUTO) 0.1 10^3/uL (0.0-0.3); EOSINOPHILS % (AUTO) 1 % (0-10); HEMATOCRIT 36 % (35-52); LYMPHOCYTES # (AUTO) 2.7 X 10^3 (1.0-4.0); LYMPHOCYTES % (AUTO) 24 % (12-44); MEAN CORPUSCULAR HEMOGLOBIN 31 PG (25-34); MEAN CORPUSCULAR HGB CONC 33 G/DL (32-36); MEAN CORPUSCULAR VOLUME 94 FL (80-99); MONOCYTES # (AUTO) 0.9 X 10^3 (0.0-1.0); MONOCYTES % (AUTO) 8 % (0-12); NEUTROPHILS # (AUTO) 7.4 X 10^3 (1.8-7.8); NEUTROPHILS % (AUTO) 67 % (42-75); PLATELET COUNT 297 10^3/uL (130-400); RED CELL DISTRIBUTION WIDTH 13.4 % (10.0-14.5); WHITE BLOOD COUNT 11.1 10^3/uL (4.3-11.0)
--- NOTE | 2019-02-15 07:05 | History & Physical-OB ---
OB - Chief Complaint & HPI Date/Time Date of Admission: Date of Admission: Feb 15, 2019 at 06:00 Date seen by a Provider: Feb 15, 2019 Time Seen by a Provider: 07:10 Chief Complaint/History OB-Reason for Admission/Chief: Induction of Labor Hx : 3 Hx Para: 2 Expected Date of Delivery: Feb 20, 2019 Gestational Age in Weeks: 39 Gestational Age in Days: 2 Admission Nurse Assessment Rev: Yes History of Labs GBS negative Allergies and Home Medications Allergies Coded Allergies: No Known Drug Allergies (Unverified , 02/15/19) Home Medications Acetaminophen 500 Mg Tablet, 500 MG PO PRN, (Reported) Calcium Carbonate 300 Mg Tab.chew, 300 MG PO PRN, (Reported) Vit No.124/Iron/FA 1 Each Tablet, 1 EACH PO DAILY, (Reported) Patient Home Medication List Home Medication List Reviewed: Yes OB - History Hx of Present Care: Yes Ultrasounds: Normal mid trimester US Obstetrical Complications: None Medical Complications: None Obstetrical History Hx Termination: No Hx Multiple Gestation: No Hx Stillbirth: No Hx Complication: Yes (subchorionic hemmorhage this ; resolved) Hx Induced Hypertens: No Hx Maternal Gestational Diabet: No Delivery History Hx Dystocia: No Hx Large For Gestational Age I: No Hx Small for Gestational Age I: No Hx Section: No Hx Vaginal Delivery Post C-Sec: No Hx Blood Disorders: No Adverse Rxn to Tranfusion: No Patient Past Medical History no chronic medical problems Social History/Family History 2nd Hand Smoke Exposure: No Immunizations Tetanus Booster (TDap): Less than 5yrs OB - Admission Exam Physical Exam HEENT: Moist Membranes Heart: Rhythm Normal Lungs: Clear Abdomen: Gravid Reflexes: Normal Cervical Dilatation: 2cm Effacement: 75% Membranes: Intact Intensity: Mild Baumann Scoring Tool (Modified) Dilation (cm): 1-2cm (1) Effacement (%): 51-79% (2) Descent/Station: -3 (0) Cervix Consistency: Medium(1) Cervix Position: Middle/Mid-Position (1) Add 1 point for: Each previous vaginal delivery (1) Baumann Score: 7 Labs Laboratory Tests Test 02/15/19 06:10 Range/Units White Blood Count 11.1 H 4.3-11.0 10^3/uL Red Blood Count 3.82 L 4.35-5.85 10^6/uL Hemoglobin 12.0 11.5-16.0 G/DL Hematocrit 36 35-52 % Mean Corpuscular Volume 94 80-99 FL Mean Corpuscular Hemoglobin 31 25-34 PG Mean Corpuscular Hemoglobin Concent 33 32-36 G/DL Red Cell Distribution Width 13.4 10.0-14.5 % Platelet Count 297 130-400 10^3/uL Mean Platelet Volume 10.0 7.4-10.4 FL Neutrophils (%) (Auto) 67 42-75 % Lymphocytes (%) (Auto) 24 12-44 % Monocytes (%) (Auto) 8 0-12 % Eosinophils (%) (Auto) 1 0-10 % Basophils (%) (Auto) 0 0-10 % Neutrophils # (Auto) 7.4 1.8-7.8 X 10^3 Lymphocytes # (Auto) 2.7 1.0-4.0 X 10^3 Monocytes # (Auto) 0.9 0.0-1.0 X 10^3 Eosinophils # (Auto) 0.1 0.0-0.3 10^3/uL Basophils # (Auto) 0.0 0.0-0.1 10^3/uL OB - Assessment/Plan/Diagnosis Assessment Assessment: induction of labor Admission Dx IUP at 39w2d Admission Status: Inpatient Order (span 2 midnights) Reason for Inpatient Admission: Induction of labor Plan Plan: Induction Induction Method: AROM Other Plan Patient desires epidural Pitocin if necessary ROLAN BASHIR MD Feb 15, 2019 07:05
[2019-02-15] MEDS ORDERED: SUFENTA 0.6MCG/ML BUPIVA 0.125 100 ML ONE (07:28)
[2019-02-15] MEDS ORDERED: LACTATED RINGERS 1,000 ML IV ONE ×2 (07:28→09:00)
[2019-02-15] MEDS ORDERED: fentaNYL INJECTION 100 MCG/2 ML AMP ONE (08:25)
[2019-02-15] MEDS ORDERED: BUPIVACAINE 0.25% 30 ML (SENSORCAINE) VIAL ONE (08:25)
--- NOTE | 2019-02-15 08:30 | NUR ---
Tyrel Ray PPAP COORDINATOR for epidural placement. Procedure explained, consent reviewed and signed by anesthesia. Questions answered to patient's satisfaction. Time out taken to verify correct patient/procedure. Patient up to side of bed, assisted into sitting position. Betadine prep done x3 and sterile drape applied. Local done, see anesthesia record. Test dose given, see anesthesia record for drug and dosage. Epidural catheter secured in place. Epidural placement complete. Assisted back into bed, monitors adjusted. Epidural dosed, see anesthesia record. Epidural of Sufenta/Bupivicaine @ 12 cc/hr stated per pump. Patient tolerated procedure well.
[2019-02-15] MEDS: EPIDURAL (SUFENTA 0.6MCG/ML BUPIVA 0.125%) 100 ML BAG EPI SCH ×2 (08:50→15:44)
[2019-02-15] MEDS ORDERED: CATHETER FLUSH 10 ML SYR IV PRN (09:00)
[2019-02-15] MEDS ORDERED: NALOXONE 0.4 MG/ML 1 ML (NARCAN) VIAL IV PRN (09:00)
[2019-02-15] MEDS ORDERED: OXYTOCIN/NORMAL SALINE 500 ML IV ONE (09:10)
[2019-02-15] MEDS ORDERED: OXYTOCIN/NORMAL SALINE 500 ML IV SCH (11:30)
[2019-02-15] MEDS ORDERED: CATHETER FLUSH 10 ML SYR IV SCH ×2 (14:00→22:00)
--- NOTE | 2019-02-15 19:00 | NUR ---
Report to Keith Ardon RN.
--- NOTE | 2019-02-15 19:10 | NUR ---
This RN called Dr Palafox to notify of latest SVE that was performed per Clemencia Jenkins RN. to head to hospital shortly.
[2019-02-15] MEDS ORDERED: MEPIVACAINE (CARBOCAINE) 2% 50 ML VIAL ONE (19:11)
--- NOTE | 2019-02-15 19:29 | NUR ---
Spontaneous vaginal delivery of viable male infant per Dr Palafox. to patient abd, dried and stimulated per Panchito Tobin RN. Spontaneous delivery of placenta per Dr Palafox, do not process per dr dyer. No episiotomy or tears. See flow sheet for further recovery details.
--- NOTE | 2019-02-15 19:41 | OB Labor & Delivery Record ---
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 Variability: Average (6-10) Short Term Variability: Present Presentation: Vertex Vital Signs VS - Last 72 Hours, by Label 02/15/19 02/15/19 02/15/19 02/15/19 06:19 07:15 07:30 07:45 Temp 98.4 98.2 Pulse 72 67 73 Resp 18 18 18 B/P (MAP) 108/56 (73) 119/57 (77) 115/57 (76) O2 Delivery Room Air Room Air Room Air 02/15/19 02/15/19 02/15/19 02/15/19 08:00 08:15 08:30 08:42 Pulse 70 73 77 Resp 18 18 18 18 B/P (MAP) 118/60 (79) 146/62 (90) 133/63 (86) Pulse Ox 95 94 O2 Delivery Room Air Room Air Room Air Room Air 02/15/19 02/15/19 02/15/19 02/15/19 08:43 08:44 08:45 08:49 Pulse 67 69 68 77 Resp 18 18 18 18 B/P (MAP) 123/60 (81) 125/69 (87) 115/55 (75) 120/56 (77) Pulse Ox 96 95 96 98 O2 Delivery Room Air Room Air Room Air Room Air 02/15/19 02/15/19 02/15/19 02/15/19 09:00 09:15 09:30 09:45 Temp 97.8 Pulse 87 63 59 62 Resp 18 18 18 18 B/P (MAP) 115/58 (77) 102/58 (73) 127/61 (83) 100/51 (67) Pulse Ox 98 98 98 93 O2 Delivery Room Air Room Air Room Air Room Air 02/15/19 02/15/19 02/15/199/19 10:00 10:15 10:30 10:45 Pulse 53 53 61 54 Resp 18 18 18 18 B/P (MAP) 133/61 (85) 101/50 (67) 112/54 (73) 92/51 (65) Pulse Ox 98 95 98 97 O2 Delivery Room Air Room Air Room Air Room Air 02/15/19 02/15/19 02/15/19 02/15/19 11:00 11:15 11:30 11:45 Temp 97.6 Pulse 55 51 54 51 Resp 18 18 18 18 B/P (MAP) 114/57 (76) 108/56 (73) 125/60 (81) 92/47 (62) Pulse Ox 97 98 98 95 O2 Delivery Room Air Room Air Room Air Room Air 02/15/19 02/15/19 02/15/19 02/15/19 12:00 12:15 12:30 12:45 Temp 98.1 Pulse 56 53 51 55 Resp 18 18 18 18 B/P (MAP) 87/51 (63) 108/52 (70) 112/57 (75) 117/57 (77) Pulse Ox 98 96 97 95 O2 Delivery Room Air Room Air Room Air Room Air 02/15/19 02/15/19 02/15/19 02/15/19 13:00 13:15 13:30 13:45 Pulse 53 54 56 59 Resp 18 18 18 18 B/P (MAP) 108/57 (74) 112/58 (76) 112/54 (73) 118/55 (76) Pulse Ox 96 95 96 100 O2 Delivery Room Air Room Air Room Air Non Rebreather O2 Flow Rate 15.00 02/15/19 14:00 Temp 97.6 Pulse 69 Resp 18 B/P (MAP) Pulse Ox 99 O2 Delivery Non Rebreather O2 Flow Rate 15.00 Signs of Distress by FHT Signs of Distress no Rupture of Membranes Spontaneous Ruture of Membrane: No Amniotic Membrane Rupture Time: 0714 Amniotic Membrane Fluid Desc.: Clear Induction/Anesthesia Epidural Cath Placement - Time: 0842 L&D Stage2 Stage Two Stage II Date: Feb 15, 2019 Stage II Time: 17:29 Monitors and Tracing Monitor Mode: Internal Heart Rate: 120 Monitor Accelerations: Uniform Monitor Decelerations: Variable Group Home Variability: Average (6-10) Short Term Variability: Present Position: Left Occiput Anterior Presentation: Vertex Signs of Distress by FHT Signs of Distress no Cord Descript/Complications Cord Vessel Description: 3 Vessels Delivery Type Infant Delivery Method: Spontaneous Vaginal Anterior Shoulder: Left Episiotomy/Perineal Laceration Laceraction(s)/Extensions: No Condition of Infant Delivery 1 minute Comment: 9 5 minute Comment: 9 Condition of Infant Condition of : Living Exam: No Observed Abnormalities Resuscitation Resuscitation: N/A - Spontaneous Resp L&D Stage3 Stage Three Stage III Date: Feb 15, 2019 Stage III Time: 17:34 Pictocin Pitocin Administration mu/min: 12 Pitocin ml/hr: 12 Placenta Delivery Placenta Delivery: Spontaneous Delivery Summary Summary Estimated blood loss (mL): 200 Condition of Delivery Examined: Cervix Examined Post Hemorrhage: No Intervention Required none ROLAN BASHIR MD Feb 15, 2019 19:41
[2019-02-15] MEDS ORDERED: BENZOCAINE/MENTHOL (DERMOPLAST) 56 ML CAN TP PRN (19:45)
[2019-02-15] MEDS ORDERED: MEASLES,MUMPS,RUBELLA 1 EA INJ SQ ONE (19:45)
[2019-02-15] MEDS ORDERED: TETANUS,DIPTH,PERTUSS P/F (BOOSTRIX) 0.5 ML VIAL IM ONE (19:45)
[2019-02-15] MEDS ORDERED: WITCH HAZEL(TUCKS) 40 EA JAR TOP PRN (19:45)
[2019-02-15] MEDS: IBUPROFEN 600 MG (MOTRIN) TAB PO PRN (21:02)
--- NOTE | 2019-02-15 21:25 | NUR ---
Patient transferred via wheelchair to room 312, prior to transport patient achieved void and performed appropriate pericare. Fresh gown, pad and underwear placed on patient.
[2019-02-15] MEDS: DOCUSATE SODIUM 100 MG (COLACE) CAP PO SCH (23:44)
[2019-02-16 02:10] VITALS: BP 99/59
[2019-02-16] MEDS: IBUPROFEN 600 MG (MOTRIN) TAB PO PRN ×4 (02:11→19:59)
[2019-02-16 06:00] VITALS: BP 103/63
[2019-02-16 06:45] LABS: BASOPHILS % (AUTO) 0 % (0-10); EOSINOPHILS # (AUTO) 0.1 10^3/uL (0.0-0.3); EOSINOPHILS % (AUTO) 1 % (0-10); HEMATOCRIT 32 % (35-52); HEMOGLOBIN 10.4 G/DL (11.5-16.0); LYMPHOCYTES # (AUTO) 2.7 X 10^3 (1.0-4.0); LYMPHOCYTES % (AUTO) 24 % (12-44); MEAN CORPUSCULAR HEMOGLOBIN 31 PG (25-34); MEAN CORPUSCULAR HGB CONC 33 G/DL (32-36); MEAN CORPUSCULAR VOLUME 96 FL (80-99); MEAN PLATELET VOLUME 9.6 FL (7.4-10.4); MONOCYTES # (AUTO) 0.9 X 10^3 (0.0-1.0); MONOCYTES % (AUTO) 8 % (0-12); NEUTROPHILS # (AUTO) 7.4 X 10^3 (1.8-7.8); NEUTROPHILS % (AUTO) 67 % (42-75); PLATELET COUNT 261 10^3/uL (130-400); RED CELL DISTRIBUTION WIDTH 13.5 % (10.0-14.5); WHITE BLOOD COUNT 11.1 10^3/uL (4.3-11.0)
--- NOTE | 2019-02-16 07:20 | Progress Note (SOAP) ---
Subjective Date Seen by a Provider: Feb 16, 2019 Time Seen by a Provider: 07:15 Subjective/Events-last exam Patient feels fine. She has no concerns. Objective Exam Vital Signs Date Time Temp Pulse Resp B/P (MAP) Pulse Ox O2 Delivery O2 Flow Rate FiO2 02/16/19 06:00 98.0 59 18 103/63 (76) 97 02/16/19 02:10 97.7 64 18 99/59 (72) 97 02/15/19 21:00 74 18 132/69 (90) Room Air 02/15/19 20:48 98.5 02/15/19 20:28 61 18 134/63 (86) Room Air 02/15/19 20:12 60 18 139/83 (101) Room Air 02/15/19 19:58 64 18 137/83 (101) Room Air 02/15/19 19:42 76 18 129/70 (89) Room Air 02/15/19 19:29 97.9 75 18 218/112 (147) 98 Room Air 02/15/19 19:15 67 18 135/70 (91) 98 Room Air 02/15/19 19:00 55 18 116/62 (80) 98 Room Air 02/15/19 18:45 98.7 58 18 109/51 (70) 97 Room Air 02/15/19 18:30 59 18 136/85 (102) 98 Room Air 02/15/19 18:15 98.4 63 18 106/51 (69) 97 Room Air 02/15/19 18:00 63 18 123/71 (88) 91 Room Air 02/15/19 17:45 74 18 122/59 (80) 99 Room Air 02/15/19 17:30 59 18 137/78 (97) 98 Room Air 02/15/19 17:15 55 18 126/67 (86) 96 Room Air 02/15/19 17:00 98.7 65 18 123/66 (85) 97 Room Air 02/15/19 16:45 51 18 132/69 (90) 95 Room Air 02/15/19 16:30 51 18 119/66 (83) 96 Room Air 02/15/19 16:15 56 18 128/69 (88) 93 Room Air 02/15/19 16:00 49 18 116/62 (80) 98 Room Air 02/15/19 15:45 98.1 52 18 111/65 (80) 98 Non Rebreather 15.00 02/15/19 15:30 63 18 132/84 (100) 100 Non Rebreather 15.00 02/15/19 15:15 97.8 57 18 141/80 (100) 100 Non Rebreather 15.00 02/15/19 15:00 58 18 134/79 (97) 100 Non Rebreather 15.00 02/15/19 14:45 56 18 119/58 (78) 97 Non Rebreather 15.00 02/15/19 14:30 58 18 121/56 (77) 97 Non Rebreather 15.00 02/15/19 14:15 61 18 93/45 (61) 100 Non Rebreather 15.00 02/15/19 14:00 97.6 69 18 99 Non Rebreather 15.00 02/15/19 13:45 59 18 118/55 (76) 100 Non Rebreather 15.00 02/15/19 13:30 56 18 112/54 (73) 96 Room Air 02/15/19 13:15 54 18 112/58 (76) 95 Room Air 02/15/19 13:00 53 18 108/57 (74) 96 Room Air 02/15/19 12:45 55 18 117/57 (77) 95 Room Air 02/15/19 12:30 51 18 112/57 (75) 97 Room Air 02/15/19 12:15 53 18 108/52 (70) 96 Room Air 02/15/19 12:00 98.1 56 18 87/51 (63) 98 Room Air 02/15/19 11:45 51 18 92/47 (62) 95 Room Air 02/15/19 11:30 54 18 125/60 (81) 98 Room Air 02/15/19 11:15 51 18 108/56 (73) 98 Room Air 02/15/19 11:00 97.6 55 18 114/57 (76) 97 Room Air 02/15/19 10:45 54 18 92/51 (65) 97 Room Air 02/15/19 10:30 61 18 112/54 (73) 98 Room Air 02/15/19 10:15 53 18 101/50 (67) 95 Room Air 02/15/19 10:00 53 18 133/61 (85) 98 Room Air 02/15/19 09:45 62 18 100/51 (67) 93 Room Air 02/15/19 09:30 97.8 59 18 127/61 (83) 98 Room Air 02/15/19 09:15 63 18 102/58 (73) 98 Room Air 02/15/19 09:00 87 18 115/58 (77) 98 Room Air 02/15/19 08:49 77 18 120/56 (77) 98 Room Air 02/15/19 08:45 68 18 115/55 (75) 96 Room Air 02/15/19 08:44 69 18 125/69 (87) 95 Room Air 02/15/19 08:43 67 18 123/60 (81) 96 Room Air 02/15/19 08:42 77 18 133/63 (86) 94 Room Air 02/15/19 08:30 73 18 146/62 (90) 95 Room Air 02/15/19 08:15 70 18 118/60 (79) Room Air 02/15/19 08:00 18 Room Air 02/15/19 07:45 73 18 115/57 (76) Room Air 02/15/19 07:30 67 18 119/57 (77) Room Air I & O 02/16/19 07:00 Intake Total 4100 ml Output Total 300 ml Balance 3800 ml Capillary Refill : General Appearance: No Apparent Distress Respiratory: Lungs Clear Cardiovascular: Regular Rate, Rhythm Gastrointestinal: soft (with uterus firm) Results Lab Laboratory Tests 02/16/19 06:15: White Blood Count 11.1H, Red Blood Count 3.32L, Hemoglobin 10.4L, Hematocrit 32L , Mean Corpuscular Volume 96, Mean Corpuscular Hemoglobin 31, Mean Corpuscular Hemoglobin Concent 33, Red Cell Distribution Width 13.5, Platelet Count 261, Mean Platelet Volume 9.6, Neutrophils (%) (Auto) 67, Lymphocytes (%) (Auto) 24, Monocytes (%) (Auto) 8, Eosinophils (%) (Auto) 1, Basophils (%) (Auto) 0, Neutrophils # (Auto) 7.4, Lymphocytes # (Auto) 2.7, Monocytes # (Auto) 0.9, Eosinophils # (Auto) 0.1, Basophils # (Auto) 0.0 Assessment/Plan Assessment/Plan Assess & Plan/Chief Complaint 1. S/P day 1 -24 hrs following delivery at 7:29 pm. Suspect home in the morning. -continue with routine PP care orders. Clinical Quality Measures DVT/VTE Risk/Contraindication: Risk Factor Score Per Nursin RFS Level Per Nursing on Admit: 3=High ROLAN BASHIR MD Feb 16, 2019 07:20
[2019-02-16 07:57] VITALS: BP 108/66
--- NOTE | 2019-02-16 08:32 | Anesthesia-Regional Post-Op ---
Regional Patient Condition Mental Status: Alert, Oriented x3 Circulation: Same as Pre-Op Headache: Absent Sensation: Full Recovery Motor Block: Absent Post Op Complications Complications None Follow Up Care/Instructions Patient Instructions None needed. Anesthesia/Patient Condition Patient is doing well, no complaints, stable vital signs, no apparent adverse anesthesia problems. No complications reported per nursing. TONI DEWITT CRNA Feb 16, 2019 08:32
[2019-02-16] MEDS: DOCUSATE SODIUM 100 MG (COLACE) CAP PO SCH ×2 (09:15→19:59)
--- NOTE | 2019-02-16 09:15 | NUR ---
initial shift assessment completed, see interventions for further.
[2019-02-16 14:30] VITALS: BP 114/69
--- NOTE | 2019-02-16 14:59 | NUR ---
was called r/t pt's request for dismissal after 24 hours. new orders received.
--- NOTE | 2019-02-16 15:01 | NUR ---
report given to CARLOS Watters.
[2019-02-16] MEDS ORDERED: BISACODYL 5 MG (DULCOLAX) TABLET PO NR (15:15)
--- NOTE | 2019-02-16 16:52 | NUR ---
PT LYING IN BED WITH S/O. DULCOLAX TAB GIVEN PO; SEE EMAR FOR FURTHER. PT DENIES ANY NEEDS OR QUESTIONS AT THIS TIME.
[2019-02-16] MEDS ORDERED: TETANUS,DIPTH,PERTUSS P/F (BOOSTRIX) 0.5 ML VIAL IM ONE ×2 (18:10→18:17)
--- NOTE | 2019-02-16 18:20 | NUR ---
PT SITTING UP IN BED, TENDING TO INFANT. TDAP VACCINE GIVEN IM; SEE EMAR FOR FURTHER. PT DENIES ANY NEEDS AT THIS TIME.
--- NOTE | 2019-02-16 19:59 | NUR ---
Sched. colace & ibuprofen given. 1999 VS, assessment completed, pt. c/o "pain & tumor-like thing hanging down where the baby came out", observed perineum, minimal swelling noted internal, pt. states it is "not hanging down anymore, just sore", instructed pt. to cont. to monitor. D/C questions asked per pt & answered in the event pt. is able to go home after infant's bili results back, infant in nsy now for blood draw. POC reviewed, pt. verbalized understanding & appreciative.
[2019-02-16 20:00] VITALS: BP 111/78
--- NOTE | 2019-02-16 20:56 | Discharge Inst-Women's Service ---
Discharge Inst-Women's Serv Depart Medication/Instructions New, Converted or Re-Newed RX: Other Consults/Follow Up Additional Follow Up: Yes (Dr Bashir in 6 weeks) Activity Activity: Activity as Tolerated Driving Instructions: You May Drive Nothing Inside Vagina: No [place] (for 6 weeks) Diet Discharge Diet: Regular Diet Return to The Hospital For: as below Symptoms to Report to : Bleeding Excessive, Pain Increased, Fever Over 101 Degrees F, Vaginal Discharge Foul For Any Problems or Questions: Contact Your Physician ROLAN BASHIR MD Feb 16, 2019 20:56
--- NOTE | 2019-02-16 20:58 | Discharge Summary ---
Diagnosis/Chief Complaint Date of Admission Feb 15, 2019 at 06:00 Date of Discharge February 16, 2019 Discharge Date: Feb 16, 2019 Discharge Time: 21:00 Admission Diagnosis Admission Diagnosis 1. IUP at term 39 weeks Discharge Diagnosis 1. IUP at term 39 weeks Discharge Summary-OBS Procedures 1. Epidural per anesthesia 2. Discharge Physical Examination Allergies: Coded Allergies: No Known Drug Allergies (Unverified , 02/15/19) Vitals & I&Os Vital Signs Date Time Temp Pulse Resp B/P (MAP) Pulse Ox O2 Delivery O2 Flow Rate FiO2 02/16/19 20:00 97.8 64 18 111/78 (89) 98 Room Air 02/15/19 15:45 15.00 General Appearance: No Acute Distress Respiratory: Clear to Auscultation Cardiovascular: Regular Rate Abdominal: Soft (with uterus firm) Discharge Instructions to patient/family Please see electronic discharge instructions given to patient. Discharge Medications Reviewed and agree with Discharge Medication list on patient's Discharge Instruction sheet Clinical Quality Measures DVT/VTE Risk/Contraindication: Risk Factor Score Per Nursin RFS Level Per Nursing on Admit: 3=High ROLAN BASHIR MD Feb 16, 2019 20:58
--- NOTE | 2019-02-16 21:40 | NUR ---
D/C instructions given & explained per Keith Tobin RN, pt. verbalized understanding & signed, copy of D/C instructions to pt. Pt. left [facility] ambulatory per request, W/C offered, escorted per Keith Tobin RN & SO, to home via private vehicle, pt's belongings w/pt. Pt. & properly secured in vehicle.
== END 2019-02-16 21:40 | disposition home or self-care (01) | DRG 807 ==
LOC: LDRP 06:00
PROVIDERS: ADMIT Family Medicine; ATTEND Family Medicine
PROC: 10E0XZZ Delivery of Products of Conception, External Approach (ICD-10-PCS; principal; 2019-02-15)
DX: O99.333 Smoking (tobacco) complicating pregnancy, third trimester (principal); F17.210 Nicotine dependence, cigarettes, uncomplicated; O99.613 Diseases of the digestive system complicating pregnancy, third trimester; K21.9 Gastro-esophageal reflux disease without esophagitis; Z3A.39 39 weeks gestation of pregnancy; Z37.0 Single live birth
CPT/HCPCS: 36415; 85025; 86850; 86900; 86901; 90715